=== PATIENT | male | born 1950 | race Caucasian/White ===

== ENCOUNTER 2020-10-13 20:22 | Inpatient (IN) | payer MEDICARE ==
[~2020-10-13] VITALS: Ht 172.7 cm; Wt 80.7 kg
[2020-10-13 20:54] LABS: BASOPHILS 0.3 % (0-2); HEMATOCRIT 31.5 % (42.0-54.0); IMMATURE GRANULOCYTES 0.5 % (0-5); LYMPHOCYTE ABS# 1.14 10x3/uL (1.32-3.57); LYMPHOCYTES 17.2 % (15-50); MCH 34.2 pg (26.0-34.0); MCHC 34.9 g/dL (31.0-37.0); MCV 97.8 fL (80.0-100.0); MEAN PLATELET VOLUME 10.5 fL (7.4-10.4); MONOCYTES 12.9 % (2-11); NEUTROPHIL ABS# 4.44 10x3/uL (1.78-5.38); NEUTROPHILS 67.1 % (40-80); PLATELET COUNT 107 10x3/uL (130-400); RBC 3.22 10x6/uL (4.20-6.10); RDW 14.8 % (11.5-14.5); WBC 6.6 10x3/uL (4.8-10.8)
[2020-10-13 21:13] LABS: ANION GAP 8.3 mmol/L (8-16); CALCIUM 8.5 mg/dL (8.5-10.1); CARBON DIOXIDE 28.1 mmol/L (21.0-32.0); CREATININE - SERUM 1.2 mg/dL (0.6-1.3); POTASSIUM - SERUM 3.4 mmol/L (3.5-5.1)
[2020-10-13 21:26] LABS: ALBUMIN 2.4 g/dL (3.4-5.0); BILIRUBIN - TOTAL 2.77 mg/dL (0.2-1.3); PROTEIN - SERUM 7.7 g/dL (6.4-8.2); TROPONIN-I 0.045 ng/mL (0.000-0.060)
[2020-10-13 23:55] LABS: APTT 35.7 SECONDS (22.8-39.4); INR 1.68 (0.85-1.17); PROTIME 18.3 SECONDS (11.6-15.0)
[2020-10-14 01:34] LABS: NITRITE NEGATIVE (NEGATIVE)
[2020-10-14 01:35] LABS: BILIRUBIN NEGATIVE (NEGATIVE); KETONE NEGATIVE (NEGATIVE); UROBILINOGEN 8 mg/dL (< 2)
[2020-10-14 01:36] LABS: BACTERIA FEW HPF (NONE SEEN); SQUAMOUS EPITHELIAL 0-5 HPF (0-4); WHITE CELLS - URINE 0-5 HPF (0-1)
[2020-10-14] MEDS ORDERED: TOPROL XL50 MG PO (03:37)
[2020-10-14 03:49] VITALS: BP 177/85; BMI 27.1
[2020-10-14 07:49] LABS: ALBUMIN 2.2 g/dL (3.4-5.0); ANION GAP 10.4 mmol/L (8-16); BILIRUBIN - TOTAL 2.64 mg/dL (0.2-1.3); CARBON DIOXIDE 24.9 mmol/L (21.0-32.0); CREATININE - SERUM 1.1 mg/dL (0.6-1.3); MAGNESIUM - SERUM 1.4 mg/dL (1.8-2.4); POTASSIUM - SERUM 3.3 mmol/L (3.5-5.1); PROTEIN - SERUM 6.9 g/dL (6.4-8.2)
[2020-10-14 08:03] LABS: BASOPHILS 0.5 % (0-2); EOSINOPHILS 3.7 % (0-7); HEMATOCRIT 30.2 % (42.0-54.0); HEMOGLOBIN 10.2 g/dL (13.5-17.5); IMMATURE GRANULOCYTES 0.3 % (0-5); LYMPHOCYTE ABS# 1.29 10x3/uL (1.32-3.57); LYMPHOCYTES 21.9 % (15-50); MCH 33.6 pg (26.0-34.0); MCHC 33.8 g/dL (31.0-37.0); MCV 99.3 fL (80.0-100.0); MONOCYTES 12.6 % (2-11); NEUTROPHIL ABS# 3.59 10x3/uL (1.78-5.38); PLATELET COUNT 112 10x3/uL (130-400); RBC 3.04 10x6/uL (4.20-6.10); RDW 15.1 % (11.5-14.5); WBC 5.9 10x3/uL (4.8-10.8)
[2020-10-14 09:04] LABS: % SATURATION 39 % (15-55); IRON 80 ug/dl (35-150); TOTAL IRON BIND CAPACITY 203 ug/dl (260-445); UNSAT IRON BIND CAPACITY 123 ug/dl (150-375)
[2020-10-14 09:31] VITALS: BP 155/83
[2020-10-14 12:13] LABS: PROTEIN - BODY FLUID 1.6 G/DL
[2020-10-14 13:19] VITALS: BP 180/77
[2020-10-14 13:59] LABS: MACROPHAGES BF 82 %; MESOTHELIALS BF 3 %; NEUT - BF 3 %
[2020-10-14 14:28] VITALS: Ht 172.7 cm; Wt 80.7 kg
[2020-10-14 17:25] VITALS: BP 141/68
--- NOTE | 2020-10-15 04:17 | NUR ---
ASSESSED AT THE BEGINNING OF THE SHIFT. PT IS ALERT AND ABLE TO VERBALIZE NEEDS. HIS IV SITE WAS PULLED OUT FROM HIS HAND AND WE ATTEMPTED TO REPLACE IT WITH SEVERAL NURSES AND MULTIPLE STICKS TO NO AVAIL. HE FINALLY TOLD US HE DID NOT WANT TO BE STUCK AGAIN. HE HAS A SMALL SITE ON HIS RIGHT LOWER ABD FROM THE PARACENTIS DONE YESTERDAY WITH NO DRAINAGE NOTED. 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 WE ARE RUNNING TELEMETRY AND IT IS SR. HE HAS A URINAL IN THE ROOM BUT HE IS VERY MESSY WITH THE URINAL AND HIS ROOM HAS AN OODER FO URINAL EVEN AFTER CLEANING IT. HE IS AWARE WE NEED A STOOL SPECIMEN.
[2020-10-15 05:54] LABS: BASOPHILS 0.6 % (0-2); EOSINOPHILS 4.1 % (0-7); HEMATOCRIT 28.2 % (42.0-54.0); HEMOGLOBIN 9.7 g/dL (13.5-17.5); IMMATURE GRANULOCYTES 0.4 % (0-5); LYMPHOCYTE ABS# 1.15 10x3/uL (1.32-3.57); LYMPHOCYTES 22.4 % (15-50); MCH 33.7 pg (26.0-34.0); MCHC 34.4 g/dL (31.0-37.0); MCV 97.9 fL (80.0-100.0); MEAN PLATELET VOLUME 11.3 fL (7.4-10.4); MONOCYTES 11.7 % (2-11); NEUTROPHIL ABS# 3.12 10x3/uL (1.78-5.38); NEUTROPHILS 60.8 % (40-80); PLATELET COUNT 105 10x3/uL (130-400); RBC 2.88 10x6/uL (4.20-6.10); RDW 14.8 % (11.5-14.5); WBC 5.1 10x3/uL (4.8-10.8)
[2020-10-15 06:16] LABS: ALBUMIN 2.1 g/dL (3.4-5.0); ALKALINE PHOSPHATASE 46 U/L (30-120); ALT (SGPT) 18 U/L (10-68); BILIRUBIN - TOTAL 2.31 mg/dL (0.2-1.3); CALC OSMOLALITY 264 mosm/kg (275-300); CALCIUM 7.6 mg/dL (8.5-10.1); CARBON DIOXIDE 25.2 mmol/L (21.0-32.0); CHLORIDE - SERUM 101 mmol/L (98-107); GLUCOSE 82 mg/dL (74-106); MAGNESIUM - SERUM 1.7 mg/dL (1.8-2.4); POTASSIUM - SERUM 3.6 mmol/L (3.5-5.1); PROTEIN - SERUM 6.4 g/dL (6.4-8.2); SODIUM 133 mmol/L (136-145); UREA NITROGEN 12 mg/dL (7-18); eGFR NON AFRICAN AMERICAN 78 mL/min (90-120)
[2020-10-15 06:20] LABS: LIPASE 776 U/L (73-393)
[2020-10-15 06:24] VITALS: BP 130/66
[2020-10-15 08:13] LABS: HEPATITIS C ANTIBODY >11.0 (0.0-0.9)
[2020-10-15 08:22] VITALS: BP 170/75
--- NOTE | 2020-10-15 09:09 | NUR ---
RESTING IN BED, NO DISTRESS NOTED, IV INFUSING, DIET ORDERED FOR THIS AM, CONT TO MONITOR
[2020-10-15] MEDS ORDERED: ALDACTONE100 MG PO (11:37)
[2020-10-15] MEDS ORDERED: FUROSEMIDE20 MG PO (11:38)
[2020-10-15] MEDS ORDERED: K-TAB10 MEQ PO (11:38)
[2020-10-15 12:20] VITALS: BP 136/51
--- NOTE | 2020-10-15 12:30 | NUR ---
PT LEFT UNIT LOOKING FOR HIS DAUGHTER, LOCATED AND RETURNED, PT HAD REMOVED IV, BLEEDING CONTROLLED
--- NOTE | 2020-10-15 13:40 | NUR ---
REVIEWED DC WITH PT, VOICED NO CONCERNS, AWAITING RIDE
--- NOTE | 2020-10-15 14:48 | NUR ---
DAUGHTER WHO IS PTS RIDE HOME IS NOW A PT OF THE HOSPITAL, CM AWARE
--- NOTE | 2020-10-15 15:16 | NUR ---
TAKEN OUT PER W/C TO MEET TAXI
--- NOTE | 2020-10-17 14:56 | MORECARE ---
CASE MANAGEMENT DISCHARGE SUMMARY PATIENT: AIDA AZAR UNIT: [id number] ADM DATE: 10/14/20 AGE: 70 : 50 SEX: M ROOM/BED: D.2204 AUTHOR: LUCILLE,DOC PHYSICIAN: REFERRING PHYSICIAN: WICHO BERRY MD DATE OF SERVICE: 10/17/20 Case Management Discharge Planning Summary COMMENTS ENTERED DATE: 10/15/20 14:38 CT COMMENT TYPE: Discharge Planning REVIEWER: Shaun Quiroz CM met with patient to complete DC plan and to evaluate needs. Patient lives independently with his daughter, Dary Emerson, . Patient stated that his home is safe and has electricity and running water. Patient stated that the home has 1 step to enter and he is able to manage the step without difficulty. Patient stated that he has no problems paying for medications and he fills his medications at [facility]. Patient stated that his primary care physician is Dr. Bishop Pollard. At discharge, the patient plans to return home and feels this is a safe discharge. CM discussed availability of home health, rehab services, and medical equipment. Patient declined HHS, SNF, IPR, and DME. AGUILA refusal for Home Health signed and placed in chart. Patient stated he has a cane at home and is able to walk around his home with ease. Patient voiced no other needs at this time and is satisfied with DC plan. Transportation provider at discharge will be with his daughter, Dary. DC IMM delivered, explained, signed by the patient, and placed in chart. Signed form also left with the patient. CM will continue to follow and will assist as needed with dc plans/needs DCP REVIEW SUMMARY ANTICIPATED D/C DATE: 10/15/2020 EXPECTED LOS : 1 CASE STATUS: DCP Complete INITIAL REVIEW: 10/14/2020 INITIAL REVIEWER: Shaun Quiroz FINAL DISCHARGE DISPOSITION: 01 : Home or Self Care (Routine Discharge) FINAL REVIEWER: Shaun Quiroz FINAL REVIEW DATE: 10/17/2020 DCP Focus Questions & Answers DCP Evaluation QUESTION: ANSWER Patient and/or caregiver agree upon recommended discharge plan? : Yes Family / Caregiver's ability to cope with chronic illness: : a. Adequate (ability to meet patient's medical needs, ensures patient attends medical appts.) Patient's current cognitive status: : *Oriented to person, place, situation, time and present Patient's ability to cope with chronic illness : d. No chronic illness Patient gives permission to discuss discharge plans with: (name, relationship and number) : daughterDary, Does the patient have the ability to pay for or attain post discharge needs / services? : Yes Functional screen assessment: : Basic needs can adequately be met by self Family / Caregiver's ability to cope with chronic illness: : a. Adequate (ability to meet patient's medical needs, ensures patient attends medical appts.) Physical Status: : Independent with ADL's Equipment needed for post hospitalization: : None Is there a likelihood that the patient will require additional services to return to the preadmission environment? : No Living Arrangements: : Home with Extended Family Patient with capacity for self-care or can be cared for in same environment as prior to hospitalization? : Yes Baseline cognitive status: : *Oriented to person, place, situation, time and present Physical environment modification needed / anticipated for discharge: : No Medication Management: : Patient states can read and understand medication labels Medication Management: : Patient states can afford medications Pharmacy name(s): : [email or web address] Does Patient have transportation to get home and to follow-up medical appointments when discharged from the hospital? : Yes Would patient like to participate in any Care Coordination programs (if applicable): : Not applicable Does the patient have electricity at home? : Yes Does the patient have running water in their house? : Yes Equipment in use: : Cane - Single Leg Mental health screen: : No mental health history DCP Re-evaluation QUESTION: ANSWER Would patient like to participate in any Care Coordination programs (if applicable): : Not applicable PATIENT: AIDA AZAR ENCOUNTER: [id number] MEDICAL RECORD#: [id number] ADMISSION DATE: 10/14/2020 DISCHARGE DATE: 10/15/2020 ATTENDING MD: WICHO DE LA TORRE : AGE: 70 MARITAL STATUS: S DC PLAN ID: [id number] FACILITY: [facility] PRINTED ON: 10/17/20 14:56 CT All edits/amendments must be made on the electronic document DICTATION DATE: 10/17/201455 SEWING MACHINE TESTER: PHILOMENA 10/17/201455 RPT#: [id number] DC DATE:10/15/20 STATUS: DIS IN [facility] [address] [place] [address] END OF REPORT
== END 2020-10-15 15:17 | disposition home or self-care (01) | DRG 432 ==
LOC: D.ER 20:22 → D.MS 10-14 02:52
PROVIDERS: Family Medicine; Radiology Vascular & Interventional Radiology; ADMIT Emergency Medicine; ATTEND Emergency Medicine
PROC: 0W9G3ZZ Drainage of Peritoneal Cavity, Percutaneous Approach (ICD-10-PCS; principal; 2020-10-14 10:15)
DX: K74.60 Unspecified cirrhosis of liver (principal); K85.90 Acute pancreatitis without necrosis or infection, unspecified; E87.1 Hypo-osmolality and hyponatremia; R18.8 Other ascites; K76.6 Portal hypertension; I10 Essential (primary) hypertension; E87.6 Hypokalemia; D50.9 Iron deficiency anemia, unspecified; D69.6 Thrombocytopenia, unspecified; K40.90 Unilateral inguinal hernia, without obstruction or gangrene, not specified as recurrent; Z86.19 Personal history of other infectious and parasitic diseases; K57.90 Diverticulosis of intestine, part unspecified, without perforation or abscess without bleeding; E83.42 Hypomagnesemia

== ENCOUNTER 2020-10-29 15:40 | Inpatient (IN) | payer MEDICARE ==
[~2020-10-29] VITALS: Ht 172.7 cm; Wt 81.6 kg
[~2020-10-29 15:40] MED LIST: ALDACTONE100 MG PO; FUROSEMIDE20 MG PO; K-TAB10 MEQ PO; TOPROL XL50 MG PO
[2020-10-29 16:39] LABS: BASOPHILS 0.4 % (0-2); EOSINOPHILS 2.3 % (0-7); HEMATOCRIT 33.6 % (42.0-54.0); HEMOGLOBIN 11.6 g/dL (13.5-17.5); LYMPHOCYTES 23.2 % (15-50); MCH 34.6 pg (26.0-34.0); MCHC 34.4 g/dL (31.0-37.0); MCV 100.7 fL (80.0-100.0); MEAN PLATELET VOLUME 8.8 fL (7.4-10.4); NEUTROPHILS 65.1 % (40-80); RBC 3.33 10x6/uL (4.20-6.10); RDW 15.1 % (11.5-14.5); WBC 5.8 10x3/uL (4.8-10.8)
[2020-10-29 16:41] LABS: PLATELET COUNT 139 10x3/uL (130-400)
[2020-10-29 16:48] LABS: CALC OSMOLALITY 258 mosm/kg (275-300); CALCIUM 8.5 mg/dL (8.5-10.1); CARBON DIOXIDE 25.2 mmol/L (21.0-32.0); CHLORIDE - SERUM 96 mmol/L (98-107); CREATININE - SERUM 1.1 mg/dL (0.6-1.3); GLUCOSE 109 mg/dL (74-106); POTASSIUM - SERUM 3.7 mmol/L (3.5-5.1); SODIUM 129 mmol/L (136-145); UREA NITROGEN 9 mg/dL (7-18); eGFR NON AFRICAN AMERICAN 70 mL/min (90-120)
[2020-10-29 16:56] LABS: ALBUMIN 2.6 g/dL (3.4-5.0); ALKALINE PHOSPHATASE 66 U/L (30-120); ALT (SGPT) 24 U/L (10-68); AMYLASE - SERUM 81 U/L (25-115); BILIRUBIN - TOTAL 2.68 mg/dL (0.2-1.3); LIPASE 543 U/L (73-393); PROTEIN - SERUM 8.3 g/dL (6.4-8.2); TROPONIN-I < 0.017 ng/mL (0.000-0.060)
[2020-10-29 17:36] LABS: APTT 39.8 SECONDS (22.8-39.4); INR 1.53 (0.85-1.17)
[2020-10-29 17:44] VITALS: BP 167/84
--- NOTE | 2020-10-29 17:44 | NUR ---
REPORT TO ARACELI COLUNGA
[2020-10-29 18:36] VITALS: BP 172/95; BMI 27.4
[2020-10-29 20:00] VITALS: BP 171/97
--- NOTE | 2020-10-30 00:54 | NUR ---
IV TO LAC HARD TO FLUSH AND TENDER. MULTIPLE NURSES AND HOUSE SUP HAVE ATTEMPTED TO RESITE IV WITHOUT SUCCESS. WOODS BOSS PROVIDER NOTIFIED. CONSULT FOR IR TO PLACE PICC LINE ORDERED. WILL CONTINUE TO ATTEMPT ACCESS
--- NOTE | 2020-10-30 02:29 | NUR ---
I have reviewed this patient and I concur with the Shift Assessment completed by the Licensed Practical Nurse today this shift.
[2020-10-30 04:00] VITALS: BP 162/83
[2020-10-30 05:36] LABS: BASOPHILS 0.5 % (0-2); EOSINOPHILS 2.1 % (0-7); HEMATOCRIT 28.3 % (42.0-54.0); LYMPHOCYTES 11.1 % (15-50); MCHC 35.2 g/dL (31.0-37.0); MCV 99.3 fL (80.0-100.0); MEAN PLATELET VOLUME 8.5 fL (7.4-10.4); MONOCYTES 4.9 % (2-11); NEUTROPHILS 81.4 % (40-80); PLATELET COUNT 135 10x3/uL (130-400); RBC 2.85 10x6/uL (4.20-6.10); RDW 15.1 % (11.5-14.5); WBC 5.8 10x3/uL (4.8-10.8)
[2020-10-30 06:06] LABS: ALBUMIN 2.3 g/dL (3.4-5.0); ANION GAP 10.9 mmol/L (8-16); BILIRUBIN - TOTAL 2.09 mg/dL (0.2-1.3); CARBON DIOXIDE 24.2 mmol/L (21.0-32.0); CREATININE - SERUM 1.2 mg/dL (0.6-1.3); MAGNESIUM - SERUM 1.3 mg/dL (1.8-2.4); POTASSIUM - SERUM 4.1 mmol/L (3.5-5.1); PROTEIN - SERUM 7.4 g/dL (6.4-8.2)
[2020-10-30 09:00] VITALS: BP 167/96
[2020-10-30 11:53] VITALS: BP 154/72
[2020-10-30 16:51] VITALS: BP 142/65
[2020-10-30 20:00] VITALS: BP 144/70
--- NOTE | 2020-10-30 23:36 | NUR ---
I have reviewed this patient and I concur with the Shift Assessment completed by the Licensed Practical Nurse today this shift.
[2020-10-30 23:40] LABS: BILIRUBIN NEGATIVE (NEGATIVE); KETONE NEGATIVE (NEGATIVE); NITRITE NEGATIVE (NEGATIVE); UROBILINOGEN 8 mg/dL (< 2)
[2020-10-31 06:23] LABS: BASOPHILS 0.3 % (0-2); EOSINOPHILS 0.1 % (0-7); HEMATOCRIT 27.1 % (42.0-54.0); HEMOGLOBIN 9.5 g/dL (13.5-17.5); LYMPHOCYTES 9.6 % (15-50); MCH 35.3 pg (26.0-34.0); MCHC 35.1 g/dL (31.0-37.0); MCV 100.6 fL (80.0-100.0); MEAN PLATELET VOLUME 8.5 fL (7.4-10.4); MONOCYTES 10.1 % (2-11); NEUTROPHILS 79.9 % (40-80); PLATELET COUNT 131 10x3/uL (130-400); RBC 2.69 10x6/uL (4.20-6.10); RDW 14.8 % (11.5-14.5)
[2020-10-31 06:29] LABS: INR 1.67 (0.85-1.17); PROTIME 18.3 SECONDS (11.6-15.0)
[2020-10-31 06:43] LABS: ALBUMIN 2.7 g/dL (3.4-5.0); ANION GAP 13.5 mmol/L (8-16); BILIRUBIN - TOTAL 1.44 mg/dL (0.2-1.3); CALCIUM 8.4 mg/dL (8.5-10.1); CARBON DIOXIDE 25.4 mmol/L (21.0-32.0); CREATININE - SERUM 1.2 mg/dL (0.6-1.3); POTASSIUM - SERUM 3.9 mmol/L (3.5-5.1); PROTEIN - SERUM 7.3 g/dL (6.4-8.2)
[2020-10-31 06:48] LABS: MAGNESIUM - SERUM 1.7 mg/dL (1.8-2.4)
[2020-10-31 06:59] LABS: WBC 8.1 10x3/uL (4.8-10.8)
[2020-10-31 09:22] VITALS: BP 137/57
--- NOTE | 2020-10-31 10:42 | NUR ---
I have reviewed this patient and I concur with the Shift Assessment completed by the Licensed Practical Nurse today this shift.
--- NOTE | 2020-10-31 11:04 | NUR ---
PATIENT REQUESTING TO SEE DOCTOR SO HE CAN BE DC, ADVISED PATIENT THAT MEDICAL FRONT DESK SPECIALIST IS ON FLOOR AND MAKING ROUNDS, ADMNISTERED PRN PAIN MEDICATION PATIENT STATE THAT STOMACH IS CRAMPING. CONTINUE WITH PLAN OF CARE
[2020-10-31 11:35] VITALS: BP 134/64
[2020-10-31 13:50] VITALS: Ht 172.7 cm; Wt 81.6 kg
[2020-10-31 17:28] VITALS: BP 127/62
[2020-10-31 20:00] VITALS: BP 152/73
[2020-11-01] VITALS: BP 108/47
--- NOTE | 2020-11-01 02:49 | NUR ---
PATIENT HAS BED ALARM IN PLACE, HE WILL NOT USE THE CALL LIGHT, VERBALLY REDIRECTED BUT HE FORGETS.
[2020-11-01 04:00] VITALS: BP 180/63
[2020-11-01 06:01] LABS: BASOPHILS 0.6 % (0-2); EOSINOPHILS 0.9 % (0-7); HEMATOCRIT 28.8 % (42.0-54.0); MCH 35.1 pg (26.0-34.0); MCHC 34.9 g/dL (31.0-37.0); MCV 100.6 fL (80.0-100.0); MEAN PLATELET VOLUME 8.5 fL (7.4-10.4); MONOCYTES 4.3 % (2-11); NEUTROPHILS 85.2 % (40-80); PLATELET COUNT 139 10x3/uL (130-400); RBC 2.86 10x6/uL (4.20-6.10); RDW 14.8 % (11.5-14.5)
[2020-11-01 06:04] LABS: APTT 33.3 SECONDS (22.8-39.4); INR 1.66 (0.85-1.17); PROTIME 18.2 SECONDS (11.6-15.0)
[2020-11-01 06:25] LABS: ALBUMIN 2.6 g/dL (3.4-5.0); ANION GAP 10.8 mmol/L (8-16); BILIRUBIN - TOTAL 1.22 mg/dL (0.2-1.3); CALCIUM 8.3 mg/dL (8.5-10.1); CARBON DIOXIDE 23.1 mmol/L (21.0-32.0); CREATININE - SERUM 1.2 mg/dL (0.6-1.3); MAGNESIUM - SERUM 1.6 mg/dL (1.8-2.4); POTASSIUM - SERUM 3.9 mmol/L (3.5-5.1); PROTEIN - SERUM 7.3 g/dL (6.4-8.2)
[2020-11-01 08:38] VITALS: BP 169/75
--- NOTE | 2020-11-01 09:46 | NUR ---
PATIENT STATED THAT HE IS TIRED OF BEING PICKED AND PROBED AND READY TO GO HOME. EXPLAINED THAT PATIENT NEEDS TO SEE [facility] AND [facility] CONCERNS, PATIENT STATED HE IS READY TO LEAVE, NO OTHER NEEDS AT THIS TIME. COTCHRISTELLENUE WITH PLAN OF CARE
--- NOTE | 2020-11-01 11:30 | NUR ---
I have reviewed this patient and I concur with the Shift Assessment completed by the Licensed Practical Nurse today this shift.
[2020-11-01 11:45] VITALS: BP 143/62
--- NOTE | 2020-11-01 13:56 | MORECARE ---
CASE MANAGEMENT DISCHARGE SUMMARY PATIENT: AIDA AZAR UNIT: [id number] ADM DATE: 10/30/20 AGE: 70 : 50 SEX: M ROOM/BED: D.2212 AUTHOR: DEDRA ADKINS PHYSICIAN: REFERRING PHYSICIAN: MILVIA LIAO MD DATE OF SERVICE: 11/01/20 Case Management Discharge Planning Summary DCP REVIEW SUMMARY ANTICIPATED D/C DATE: EXPECTED LOS : CASE STATUS: DCP Initiated INITIAL REVIEW: 10/29/2020 INITIAL REVIEWER: Anay Coe FINAL DISCHARGE DISPOSITION: : FINAL REVIEWER: FINAL REVIEW DATE: DCP Focus Questions & Answers DCP Screen QUESTION: ANSWER High Risk Factors: : Hosp related to CHF, COPD, DM, End Stage Ds, CVA, CA DCP Evaluation QUESTION: ANSWER Patient and/or caregiver agree upon recommended discharge plan? : Yes Family / Caregiver's ability to cope with chronic illness: : a. Adequate (ability to meet patient's medical needs, ensures patient attends medical appts.) Patient's current cognitive status: : *Oriented to person, place, situation, time and present Patient gives permission to discuss discharge plans with: (name, relationship and number) : JENAE MCGOWAN Patient's ability to cope with chronic illness : a. Adequate (0-3 ED visits in 6 mos., adequate financial resources, attends scheduled appts.) Alternate discharge plan (if recommended plan not agreed upon by patient and/or caregiver): : WE WILL WAIT TO SEE WHAT PT/OT SAY Does the patient have the ability to pay for or attain post discharge needs / services? : Yes Functional screen assessment: : Basic needs can adequately be met by self Family / Caregiver's ability to cope with chronic illness: : a. Adequate (ability to meet patient's medical needs, ensures patient attends medical appts.) Physical Status: : Independent with ADL's Is there a likelihood that the patient will require additional services to return to the preadmission environment? : Yes Living Arrangements: : Home with Extended Family Results of this evaluation have been discussed with: : Children Patient with capacity for self-care or can be cared for in same environment as prior to hospitalization? : Yes Living arrangements comments: : JUST MOVED IN WITH HIS DAUGHTER Baseline cognitive status: : *Oriented to person, place, situation, time and present Medication Management: : Patient states can read and understand medication labels Pharmacy name(s): : [facility] Does Patient have transportation to get home and to follow-up medical appointments when discharged from the hospital? : Yes Would patient like to participate in any Care Coordination programs (if applicable): : Not applicable Does the patient have electricity at home? : Yes Does the patient have running water in their house? : Yes Equipment in use: : Shower Chair Equipment in use: : Cane - Single Leg Mental health screen: : No mental health history Psychosocial status: : Independent adult (18-64) Abuse/Neglect: : Alcohol use - History of Resources / Services in place: : None DCP Re-evaluation QUESTION: ANSWER Would patient like to participate in any Care Coordination programs (if applicable): : Not applicable PATIENT: AIDA AZAR ENCOUNTER: [id number] MEDICAL RECORD#: [id number] ADMISSION DATE: 10/30/2020 DISCHARGE DATE: ATTENDING MD: MILVIA ROB : AGE: 70 MARITAL STATUS: S DC PLAN ID: [id number] FACILITY: [facility] PRINTED ON: 11/01/20 13:56 CT All edits/amendments must be made on the electronic document DICTATION DATE: 11/01/20 135 DIESEL ENGINE PIPE FITTER: PHILOMENA 11/01/20 1356 RPT#: [id number] DC DATE: STATUS: ADM IN [facility] [address] [place] [address] END OF REPORT
--- NOTE | 2020-11-01 14:09 | MORECARE ---
CASE MANAGEMENT DISCHARGE SUMMARY PATIENT: AIDA AZAR UNIT: [id number] ADM DATE: 10/30/20 AGE: 70 : 50 SEX: M ROOM/BED: D.2212 AUTHOR: LUCILLE,DOC PHYSICIAN: REFERRING PHYSICIAN: MILVIA LIAO MD DATE OF SERVICE: 11/01/20 Case Management Discharge Planning Summary COMMENTS ENTERED DATE: 11/01/20 13:56 CT COMMENT TYPE: Discharge Planning REVIEWER: Anay Coe CM met with patient & daughter to complete initial dc planning assessment. CM educated patient on the CM role and verbal consent given by patient to complete assessment. Patient lives at home with his daughter. He just moved to [place] about 6 weeks ago. Per his daughter he has a cane and a shower chair at home. He does not have a walker. He can meet his basic ADL's. Dary stated that he use to be a heavy drinker, but he only has a couple beers at her home. She said that he has an appointment on November 11 to see if he can have surgery on his hernias. CM discussed availability of home health, rehab services, and medical equipment. We will wait and see what PT/OT evaluations state to have a safe discharge plan. CM will continue to follow and will assist as needed with dc plans/needs Patient's new physical address is [address] [place] [phone] DCP REVIEW SUMMARY ANTICIPATED D/C DATE: EXPECTED LOS : CASE STATUS: DCP Initiated INITIAL REVIEW: 10/29/2020 INITIAL REVIEWER: Anay Coe FINAL DISCHARGE DISPOSITION: : FINAL REVIEWER: FINAL REVIEW DATE: DCP Focus Questions & Answers DCP Screen QUESTION: ANSWER High Risk Factors: : Hosp related to CHF, COPD, DM, End Stage Ds, CVA, CA DCP Evaluation QUESTION: ANSWER Patient and/or caregiver agree upon recommended discharge plan? : Yes Family / Caregiver's ability to cope with chronic illness: : a. Adequate (ability to meet patient's medical needs, ensures patient attends medical appts.) Patient's current cognitive status: : *Oriented to person, place, situation, time and present Patient gives permission to discuss discharge plans with: (name, relationship and number) : DARY MCGOWAN Patient's ability to cope with chronic illness : a. Adequate (0-3 ED visits in 6 mos., adequate financial resources, attends scheduled appts.) Alternate discharge plan (if recommended plan not agreed upon by patient and/or caregiver): : WE WILL WAIT TO SEE WHAT PT/OT SAY Does the patient have the ability to pay for or attain post discharge needs / services? : Yes Functional screen assessment: : Basic needs can adequately be met by self Family / Caregiver's ability to cope with chronic illness: : a. Adequate (ability to meet patient's medical needs, ensures patient attends medical appts.) Physical Status: : Independent with ADL's Is there a likelihood that the patient will require additional services to return to the preadmission environment? : Yes Living Arrangements: : Home with Extended Family Results of this evaluation have been discussed with: : Children Patient with capacity for self-care or can be cared for in same environment as prior to hospitalization? : Yes Living arrangements comments: : JUST MOVED IN WITH HIS DAUGHTER Baseline cognitive status: : *Oriented to person, place, situation, time and present Medication Management: : Patient states can read and understand medication labels Pharmacy name(s): : [facility] Does Patient have transportation to get home and to follow-up medical appointments when discharged from the hospital? : Yes Would patient like to participate in any Care Coordination programs (if applicable): : Not applicable Does the patient have electricity at home? : Yes Does the patient have running water in their house? : Yes Equipment in use: : Shower Chair Equipment in use: : Cane - Single Leg Mental health screen: : No mental health history Psychosocial status: : Independent adult (18-64) Abuse/Neglect: : Alcohol use - History of Resources / Services in place: : None DCP Re-evaluation QUESTION: ANSWER Would patient like to participate in any Care Coordination programs (if applicable): : Not applicable PATIENT: AIDA AZAR ENCOUNTER: [id number] MEDICAL RECORD#: [id number] ADMISSION DATE: 10/30/2020 DISCHARGE DATE: ATTENDING MD: MILVIA ROB : AGE: 70 MARITAL STATUS: S DC PLAN ID: [id number] FACILITY: [facility] PRINTED ON: 11/01/20 14:09 CT All edits/amendments must be made on the electronic document DICTATION DATE: 11/01/201407 CAREER AND TRANSITION TEACHER: PHILOMENA 11/01/201407 RPT#: [id number] DC DATE: STATUS: ADM IN [facility] [address] [place] [address] END OF REPORT
[2020-11-01 17:03] VITALS: BP 145/78
[2020-11-01 20:00] VITALS: BP 144/58
[2020-11-02] VITALS: BP 181/68
[2020-11-02 04:00] VITALS: BP 178/75
--- NOTE | 2020-11-02 04:44 | NUR ---
PATIENT HAD PAIN MANAGED WITH THE PRESCRIBED PAIN MEDICATIONS, HE WAS ANXIOUS AND INCONTINENT SEVERAL TIMES TONIGHT. HE HAD A BATH THIS SHIFT. RESTING IN BED AT THIS TIME.
[2020-11-02 08:22] LABS: BASOPHILS 0.6 % (0-2); EOSINOPHILS 1.2 % (0-7); HEMATOCRIT 31.3 % (42.0-54.0); HEMOGLOBIN 10.9 g/dL (13.5-17.5); LYMPHOCYTES 12.2 % (15-50); MCH 34.6 pg (26.0-34.0); MCHC 34.9 g/dL (31.0-37.0); MCV 99.1 fL (80.0-100.0); MEAN PLATELET VOLUME 8.2 fL (7.4-10.4); MONOCYTES 11.1 % (2-11); NEUTROPHILS 74.9 % (40-80); PLATELET COUNT 147 10x3/uL (130-400); RBC 3.16 10x6/uL (4.20-6.10); RDW 14.7 % (11.5-14.5)
[2020-11-02 08:23] VITALS: BP 160/57
[2020-11-02 08:32] LABS: ALBUMIN 2.8 g/dL (3.4-5.0); ALKALINE PHOSPHATASE 54 U/L (30-120); ALT (SGPT) 30 U/L (10-68); BILIRUBIN - TOTAL 1.43 mg/dL (0.2-1.3); CALC OSMOLALITY 260 mosm/kg (275-300); CALCIUM 8.7 mg/dL (8.5-10.1); CHLORIDE - SERUM 100 mmol/L (98-107); LIPASE 682 U/L (73-393); MAGNESIUM - SERUM 1.4 mg/dL (1.8-2.4); POTASSIUM - SERUM 3.7 mmol/L (3.5-5.1); PROTEIN - SERUM 7.7 g/dL (6.4-8.2); SODIUM 130 mmol/L (136-145); UREA NITROGEN 13 mg/dL (7-18); eGFR NON AFRICAN AMERICAN 78 mL/min (90-120)
[2020-11-02 08:33] LABS: WBC 9.1 10x3/uL (4.8-10.8)
[2020-11-02 08:35] LABS: GLUCOSE 95 mg/dL (74-106)
[2020-11-02 08:41] LABS: APTT 34.5 SECONDS (22.8-39.4); INR 1.7 (0.85-1.17); PROTIME 18.5 SECONDS (11.6-15.0)
--- NOTE | 2020-11-02 09:43 | MORECARE ---
CASE MANAGEMENT DISCHARGE SUMMARY PATIENT: AIDA AZAR UNIT: [id number] ADM DATE: 10/30/20 AGE: 70 : 50 SEX: M ROOM/BED: D.2212 AUTHOR: LUCILLE,DOC PHYSICIAN: REFERRING PHYSICIAN: MILVIA LIAO MD DATE OF SERVICE: 11/02/20 Case Management Discharge Planning Summary COMMENTS ENTERED DATE: 11/01/20 13:56 CT COMMENT TYPE: Discharge Planning REVIEWER: Anay Coe CM met with patient & daughter to complete initial dc planning assessment. CM educated patient on the CM role and verbal consent given by patient to complete assessment. Patient lives at home with his daughter. He just moved to [place] about 6 weeks ago. Per his daughter he has a cane and a shower chair at home. He does not have a walker. He can meet his basic ADL's. Dary stated that he use to be a heavy drinker, but he only has a couple beers at her home. She said that he has an appointment on November 11 to see if he can have surgery on his hernias. CM discussed availability of home health, rehab services, and medical equipment. We will wait and see what PT/OT evaluations state to have a safe discharge plan. CM will continue to follow and will assist as needed with dc plans/needs Patient's new physical address is [address] [place] [phone] DCP REVIEW SUMMARY ANTICIPATED D/C DATE: EXPECTED LOS : CASE STATUS: DCP Initiated INITIAL REVIEW: 10/29/2020 INITIAL REVIEWER: Anay Coe FINAL DISCHARGE DISPOSITION: : FINAL REVIEWER: FINAL REVIEW DATE: DCP Focus Questions & Answers DCP Screen QUESTION: ANSWER High Risk Factors: : Hosp related to CHF, COPD, DM, End Stage Ds, CVA, CA DCP Evaluation QUESTION: ANSWER Patient's ability to cope with chronic illness : a. Adequate (0-3 ED visits in 6 mos., adequate financial resources, attends scheduled appts.) Patient gives permission to discuss discharge plans with: (name, relationship and number) : DARY MCGOWAN Patient's current cognitive status: : *Oriented to person, place, situation, time and present Family / Caregiver's ability to cope with chronic illness: : a. Adequate (ability to meet patient's medical needs, ensures patient attends medical appts.) Patient and/or caregiver agree upon recommended discharge plan? : Yes Physical Status: : Independent with ADL's Family / Caregiver's ability to cope with chronic illness: : a. Adequate (ability to meet patient's medical needs, ensures patient attends medical appts.) Functional screen assessment: : Basic needs can adequately be met by self Does the patient have the ability to pay for or attain post discharge needs / services? : Yes Alternate discharge plan (if recommended plan not agreed upon by patient and/or caregiver): : WE WILL WAIT TO SEE WHAT PT/OT SAY Living Arrangements: : Home with Extended Family Is there a likelihood that the patient will require additional services to return to the preadmission environment? : Yes Baseline cognitive status: : *Oriented to person, place, situation, time and present Living arrangements comments: : JUST MOVED IN WITH HIS DAUGHTER Patient with capacity for self-care or can be cared for in same environment as prior to hospitalization? : Yes Results of this evaluation have been discussed with: : Children Medication Management: : Patient states can read and understand medication labels Pharmacy name(s): : [facility] Does Patient have transportation to get home and to follow-up medical appointments when discharged from the hospital? : Yes Would patient like to participate in any Care Coordination programs (if applicable): : Not applicable Does the patient have electricity at home? : Yes Does the patient have running water in their house? : Yes Equipment in use: : Cane - Single Leg Equipment in use: : Shower Chair Mental health screen: : No mental health history Psychosocial status: : Independent adult (18-64) Abuse/Neglect: : Alcohol use - History of Resources / Services in place: : None DCP Re-evaluation QUESTION: ANSWER Would patient like to participate in any Care Coordination programs (if applicable): : Not applicable PATIENT: AIDA AZAR ENCOUNTER: [id number] MEDICAL RECORD#: [id number] ADMISSION DATE: 10/30/2020 DISCHARGE DATE: ATTENDING MD: MILVIA ROB : AGE: 70 MARITAL STATUS: S DC PLAN ID: [id number] FACILITY: [facility] PRINTED ON: 11/02/20 9:43 CT All edits/amendments must be made on the electronic document DICTATION DATE: 11/02/20942 ASSESSMENT SPECIALIST: PHILOMENA 11/02/20942 RPT#: [id number] DC DATE: STATUS: ADM IN [facility] [address] [facility] [place] [address] END OF REPORT
[2020-11-02 12:09] VITALS: BP 175/75
--- NOTE | 2020-11-02 13:58 | NUR ---
IN BED, FREE FROM SIGNS OF DISTRESS. BED LOW POSITION, CALL LIGHT IN REACH. I CONCUR WITH CABLE TOWER OPERATOR SHIFT ASSESSMENT.
--- NOTE | 2020-11-02 15:31 | NUR ---
IN BED WITH EYES CLOSED, EASILY AROUSES TO VOICE. ADMINSITERED MEDICATION, NO DIFFICULTIES. RESTING UPRIGHT IN BED. DENIES ANY NEEDS AT THIS TIME. BED IN LOWEST POSITION, BED RAILS X2, CALL LIGHT WITHIN REACH. WILL CONITNUE POC.
[2020-11-02 17:02] VITALS: BP 152/71
[2020-11-02 20:00] VITALS: BP 149/68
--- NOTE | 2020-11-02 21:34 | NUR ---
OT NOTE: PT WAS LETHARGIC. PT COMPLETED SUPINE TO SIT WITH MIN A. PT COMPLETED BED TO CHAIR TSF WITH MIN A. PT COMPLETED CHAIR TO BED TSF WITH MIN A. PT REQUIRED EXTENSIVE COG CUES FOR INCREASED SAFETY. PT REQUIRED MOD A FOR DOFF/MONTSE BRIEF. ALARM ON...CL IN REACH. [phone] [facility]
[2020-11-03 03:33] VITALS: BP 158/70
--- NOTE | 2020-11-03 03:33 | NUR ---
BED ALARM WENT OF AND HEARD A THUD AND THE PATIENT WAS ON THE FLOOR BETWEEN THE BED AND THE BATHROOM DOOR. WE HELPED HIM UP AND BACK TO BED. HE HAD BRUISE ON LEFT UPPER BACK AND A SMALLER BRUISE ON HIS LEFT SIDE. DARYL ACEVEDO NP AND HOME AIDE NOTIFIED. AEROSPACE ASSEMBLER ORDERED CT OF HEAD , C-SPINE, AND LUMBAR SPINE, AND X-RAY OF LEFT HUMERUS. PATIENT IS AWAKE IN HIS ROOM ANT THIS TIME. LOU BED ALARM ON.
--- NOTE | 2020-11-03 06:24 | NUR ---
ATTEMPTED TO NOTIGY THE PATIENTS DAUGHTER JENAE DUFFY BUT THERE WAS NO ANSWER.
--- NOTE | 2020-11-03 07:10 | NUR ---
PATIENTS DAUGHTER CALLED BACK AND I NOTIFIED HER THAT HER FATHER HAD A FALL.
[2020-11-03 07:14] LABS: BASOPHILS 0.9 % (0-2); EOSINOPHILS 2.4 % (0-7); HEMATOCRIT 32.2 % (42.0-54.0); HEMOGLOBIN 11.2 g/dL (13.5-17.5); MCH 34.8 pg (26.0-34.0); MCHC 34.9 g/dL (31.0-37.0); MCV 99.8 fL (80.0-100.0); MONOCYTES 10.6 % (2-11); NEUTROPHILS 69.1 % (40-80); PLATELET COUNT 129 10x3/uL (130-400); RBC 3.22 10x6/uL (4.20-6.10); RDW 14.6 % (11.5-14.5); WBC 8.1 10x3/uL (4.8-10.8)
[2020-11-03 07:36] LABS: APTT 33.6 SECONDS (22.8-39.4); INR 1.6 (0.85-1.17); PROTIME 17.6 SECONDS (11.6-15.0)
[2020-11-03 07:42] LABS: ALBUMIN 2.8 g/dL (3.4-5.0); ANION GAP 12.5 mmol/L (8-16); BILIRUBIN - TOTAL 1.76 mg/dL (0.2-1.3); CALCIUM 8.7 mg/dL (8.5-10.1); CREATININE - SERUM 1.1 mg/dL (0.6-1.3); MAGNESIUM - SERUM 1.3 mg/dL (1.8-2.4); POTASSIUM - SERUM 3.5 mmol/L (3.5-5.1); PROTEIN - SERUM 7.4 g/dL (6.4-8.2)
[2020-11-03 08:51] VITALS: BP 119/69
--- NOTE | 2020-11-03 09:00 | NUR ---
ASSESSMENT PER FLOW SHEET. PATIENT IS WITHOUT DISTRESS.HE KEEPS GETTING OUT OF BED.FALL PREVENTION WITH LOU. I HAVE LOOKED FOR HIS PHONE,BUT CAN NOT FIND IT IN ROOM. CHARGERS ARE IN ROOM. CALL FOR SOMEONE TO COME AND GET WALLET AND LOCK IN SAFE.MONITOR FOR NEEDS. DOOR OPEN
--- NOTE | 2020-11-03 09:30 | NUR ---
REFUSES IV RESITE. PATIENT KEEPS PULLING OFF TELEMETRY. I HAVE PUT IN ON SEVERAL TIMES TODAY.MAG PER PROTOCOL.
[2020-11-03 11:00] VITALS: BP 116/68
--- NOTE | 2020-11-03 11:45 | NUR ---
REHAB PRESCREEN RECEIVED. WE WILL WORK ON HIS PRESCREEN SHORTLY AND IF APPROPRIATE AND PATIENT WANTS TO COME TO US, WE WILL START THE AUTH PROCESS WITH [facility] (WHO DOES [facility] FOR [facility]). THANK YOU FOR THIS REFERRAL. INDERJIT MOTT RN CLINICAL LIAISON, INPATIENT REHAB.
--- NOTE | 2020-11-03 13:34 | NUR ---
OT NOTE: PT LETHARGIC. PT IS INCONSISTENT WITH FUNCTIONAL PERFORMANCE. PT REQUIRED MOD-MAX A FOR SUPINE TO SIT. PT REQUIRED MOD-MAX A FOR SIT TO STAND. PT REQUIRED MAX A FOR SIDE STEPS. PT REQUIRED MAX A FOR POSITIONING IN BED. PT REQUIRED MOD A FOR FACE HYGIENE. ALARM ON..CL IN REACH. NOTIFIED NURSING OF LETHARGIC STATE. [id number] THANK YOU,MAGGI LYNCH
--- NOTE | 2020-11-03 14:04 | NUR ---
Nutrition follow-up: Pt s/p paracentesis (POD 3) with 6.3 liters fluid removed Diet: regular low sodium PO intake ~50% of some meals Pt lethargic today; s/p fall Wt: 180# Labs reviewed Will continue to provide food choices and honor food preferences. RDN will order Ensure with meals. Follow-up: 11/09/20
--- NOTE | 2020-11-03 14:15 | NUR ---
AFTER REVIEWING THERAPY NOTES. PHYSICAL THERAPY SIGNED HIM OFF TO [employer] [facility] [employer] [facility] HE IS AT HIS BASELING AND WAS JUST CGA. OCCUPATIONAL THERAPY EVALUATION HAS HIM SUPERVISED OR MINIMAL ASSISTANCE. WITHOUT THE NEED FOR 3 HOURS [facility] WILL NOT APPROVE HIM FOR INPATIENT REHAB. I HAVE TALKED WITH ARACELI ABEL CM, AND SHE IS PUTTING ANOTHER ORDER IN FOR PHYSICAL THERAPY TO COME RE-EVALUATE HIM HE HAS FALLEN AND SHE SAID HE NEED THE REHAB. I WILL WAIT ON THE NEW EVALUATION RESULTS. INDERJIT MOTT RN CLINICAL LIAISON, INPATIENT REHAB.
--- NOTE | 2020-11-03 14:17 | NUR ---
CALL TO FAMILY, JENAE. I ASK HER TO COME SIT WITH PATIENT. SHE STATES SHE SAYS IF SHE COMES SITS WITH PATIENT IT WOULD BE A FEW HOURS BEFORE SHE COULD COME. SHE ALSO SAYS SHE THINKS HE WILL WANT TO LEAVE IF SHE COMES.
--- NOTE | 2020-11-03 15:23 | NUR ---
getting out of bed again,very anxious. meds as ordered per mar.
[2020-11-03 20:39] VITALS: BP 144/72
--- NOTE | 2020-11-04 05:45 | NUR ---
LOU ALARM SOUNDING, PT ON FLOOR. APPEARS PT RAISED BED ALL THE WAY UP WITH BUTTONS. DENIES PAIN, BUT LEFT KNEE APPEARS SCRAPED. FALL PRECAUTIONS WERE IN USE. DARYL MARTINI APN NOTIFIED. PTs DAUGHTER, JENAE DUFFY, WAS CALLED TWICE, WITH NO ANSWER. DAMAGED FREIGHT INSPECTOR NOTIFIED. TRANSFERRING PT INTO NEW WHITE BED WITH BUILT IN ALARM AND LOU ALARM. LOCKING BED ADJUSTMENT BUTTONS.
[2020-11-04 08:00] VITALS: BP 178/75
[2020-11-04 08:34] LABS: ALBUMIN 2.7 g/dL (3.4-5.0); ANION GAP 11.4 mmol/L (8-16); BILIRUBIN - TOTAL 2.33 mg/dL (0.2-1.3); CALCIUM 8.5 mg/dL (8.5-10.1); CREATININE - SERUM 1.2 mg/dL (0.6-1.3); POTASSIUM - SERUM 3.4 mmol/L (3.5-5.1); PROTEIN - SERUM 7.3 g/dL (6.4-8.2)
[2020-11-04 08:37] LABS: BASOPHILS 0.4 % (0-2); HEMATOCRIT 32.3 % (42.0-54.0); HEMOGLOBIN 11.2 g/dL (13.5-17.5); LYMPHOCYTES 18.8 % (15-50); MCH 34.5 pg (26.0-34.0); MCHC 34.5 g/dL (31.0-37.0); MEAN PLATELET VOLUME 8.2 fL (7.4-10.4); MONOCYTES 9.1 % (2-11); NEUTROPHILS 68.7 % (40-80); RBC 3.23 10x6/uL (4.20-6.10); RDW 14.8 % (11.5-14.5); WBC 6.4 10x3/uL (4.8-10.8)
[2020-11-04 08:47] LABS: PLATELET COUNT 97 10x3/uL (130-400)
--- NOTE | 2020-11-04 09:00 | NUR ---
ASSESSMENT PER FLOW SHEET. PATIENT IS WITHOUT DISTRESS.FALL PREVENTION WITH LOU MAT. MONITOR FOR NEEDS.DOOR OPEN
--- NOTE | 2020-11-04 09:00 | NUR ---
ASSESSMENT PER FLOW SHEET. PATIENT HAD BEEN GETTING OUT OF BED THIS AM. I REISTRUCTED PATIENT NOT TO GET OUT OF BED VERY FIRMLY. PATIENT INSTRUCTED THAT HE COULD BE INJURED. PATIENT COOPERATIVE AND AGREES TO STAY IN BED. BED ALARM AND LOU ON AND WORKING.DOOR OPEN
[2020-11-04 10:02] LABS: PROTIME 18.2 SECONDS (11.6-15.0)
[2020-11-04 10:03] LABS: APTT 35.1 SECONDS (22.8-39.4); INR 1.66 (0.85-1.17)
[2020-11-04 10:17] LABS: PLATELET ESTIMATE DECREASED
[2020-11-04 11:37] VITALS: BP 151/68
--- NOTE | 2020-11-04 16:27 | NUR ---
OT NOTE: PT REQUIRED MOD A FOR SUPINE TO SIT. PT COMPLETED EOB SITTING WITH CGA. PT REQUIRED COG CUES FOR INCREASED SEQUENCING OF SIMPLE TASKS. PT COMPLETED ADL MOB WITH MIN-MOD A . PT COMPLETED FACE HYGIENE WITH SETUP AT EOB. PT COMPLETED ORAL HYGIENE WITH TOOTHETTE REQUIRED MOD A. PT COMPLETED HAIR GROOMING WITH MIN A. CL IN REACH..ALARM ON. [phone] CORBY HAMMONDS COTA
[2020-11-04 19:09] LABS: HCVGENO - HEP C QUANT 641000 IU/mL (()); HCVGENO - LOG 10 5.807 (())
--- NOTE | 2020-11-05 02:13 | NUR ---
LOU ALARM SOUNDING. PT ATTEMPTING TO GET OOB. REPORTS HE NEEDS TO HAVE A BM. TRANSFERRED TO BSC. FULL LINEN CHANGE AND BED BATH PERFORMED. PT GRASPING AT ABDOMEN, ASKING "WHY DO I KEEP GOING? MY STOMACHE IS KILLING ME!" INFORMED PT ON SIDE EFFECTS OF HIS MEDICATION AND PURPOSE. REPORTS ABD CRAMPING 03/19.
--- NOTE | 2020-11-05 03:13 | NUR ---
I have reviewed this patient and I concur with the Shift Assessment completed by the Licensed Practical Nurse today this shift.
[2020-11-05 05:47] LABS: INR 1.54 (0.85-1.17); PROTIME 17.1 SECONDS (11.6-15.0)
[2020-11-05 06:07] LABS: ALBUMIN 2.9 g/dL (3.4-5.0); BILIRUBIN - TOTAL 2.18 mg/dL (0.2-1.3); CALCIUM 8.3 mg/dL (8.5-10.1); CREATININE - SERUM 1.2 mg/dL (0.6-1.3); PROTEIN - SERUM 7.8 g/dL (6.4-8.2)
[2020-11-05 07:01] LABS: EOSINOPHILS 4.5 % (0-7); HEMATOCRIT 33.5 % (42.0-54.0); HEMOGLOBIN 11.6 g/dL (13.5-17.5); LYMPHOCYTES 21.2 % (15-50); MCHC 34.7 g/dL (31.0-37.0); MONOCYTES 7.7 % (2-11); NEUTROPHILS 65.6 % (40-80); PLATELET COUNT 80 10x3/uL (130-400); RBC 3.32 10x6/uL (4.20-6.10); RDW 14.9 % (11.5-14.5); WBC 7.2 10x3/uL (4.8-10.8)
[2020-11-05 09:04] VITALS: BP 179/75
[2020-11-05 13:56] VITALS: BP 169/81
[2020-11-05 18:30] VITALS: BP 150/65
--- NOTE | 2020-11-05 19:00 | NUR ---
BEDSIDE REPORT RECEIVED AND CARE OF PT ASSUMED. PT SITTING UP IN BED WATCHING TV. NO IV SITED. BED ALARM IN USE. TELEMETRY IN PLACE AND READING SR AT THIS ASSESSMENT.
--- NOTE | 2020-11-05 21:12 | NUR ---
HS MEDICATIONS GIVEN. WILL CONTINUE TO MONITOR FOR NEEDS.
[2020-11-06] VITALS: BP 160/58
[2020-11-06 04:00] VITALS: BP 149/64
[2020-11-06 07:00] LABS: BASOPHILS 0.6 % (0-2); EOSINOPHILS 3.3 % (0-7); HEMATOCRIT 31.2 % (42.0-54.0); HEMOGLOBIN 10.9 g/dL (13.5-17.5); LYMPHOCYTES 19.2 % (15-50); MCH 35.1 pg (26.0-34.0); MCHC 35.1 g/dL (31.0-37.0); MEAN PLATELET VOLUME 8.3 fL (7.4-10.4); MONOCYTES 9.2 % (2-11); NEUTROPHILS 67.7 % (40-80); PLATELET COUNT 90 10x3/uL (130-400); RBC 3.11 10x6/uL (4.20-6.10); RDW 14.7 % (11.5-14.5); WBC 7.7 10x3/uL (4.8-10.8)
[2020-11-06 07:05] LABS: INR 1.65 (0.85-1.17); PROTIME 18.1 SECONDS (11.6-15.0)
[2020-11-06 07:12] LABS: ALBUMIN 2.7 g/dL (3.4-5.0); ANION GAP 11.9 mmol/L (8-16); BILIRUBIN - TOTAL 2.03 mg/dL (0.2-1.3); CALCIUM 8.3 mg/dL (8.5-10.1); CARBON DIOXIDE 22.6 mmol/L (21.0-32.0); CREATININE - SERUM 1.1 mg/dL (0.6-1.3); MAGNESIUM - SERUM 1.3 mg/dL (1.8-2.4); POTASSIUM - SERUM 3.5 mmol/L (3.5-5.1); PROTEIN - SERUM 7.4 g/dL (6.4-8.2)
[2020-11-06 07:49] LABS: PLATELET ESTIMATE DECREASED
--- NOTE | 2020-11-06 09:47 | NUR ---
PATIENT RECIEVED MEDS AT THIS TIME. GOWN CHANGED. SPILLED A SMALL AMOUNT OF COFFEE ON GOWN. STATES HE WOULD LIKE SOMETHING FOR NAUSEA. EXPLAINED I WILL ASK PHYSICIANS WHEN THEY COME. VERBALIZED UNDERSTANDING. REFUSED NICOTINE PATCH. CALL LIGHT WITHIN REACH.
[2020-11-06 09:56] VITALS: BP 168/74
[2020-11-06 14:06] VITALS: BP 156/75
[2020-11-06 18:38] VITALS: BP 126/59
--- NOTE | 2020-11-06 19:00 | NUR ---
BEDSIDE REPORT RECEIVED AND CARE OF PT ASSUMED. PT LYING IN SUPINE POSITION WITH EYES CLOSED. TELEMETRY IN PLACE PER ORDER AND READING SR AT THIS ASSESSMENT. NO IV SITED.
--- NOTE | 2020-11-06 21:05 | NUR ---
HS MEDICATIONS GIVEN. WILL CONTINUE TO MONITOR FOR NEEDS.
--- NOTE | 2020-11-06 21:15 | NUR ---
ALL LINEN CHANGED DUE TO INCONTINCE.
--- NOTE | 2020-11-07 00:55 | NUR ---
BED ALARM SOUNDING EVERY FEW MINUTES....PT UP TO BEDSIDE COMMODE FREQUENTLY WITH FREQUENT INCONTINENT BOWEL MOVEMENTS.
[2020-11-07 07:20] LABS: ALBUMIN 2.9 g/dL (3.4-5.0); ANION GAP 13.5 mmol/L (8-16); BILIRUBIN - TOTAL 2.35 mg/dL (0.2-1.3); CALCIUM 8.6 mg/dL (8.5-10.1); CARBON DIOXIDE 23.2 mmol/L (21.0-32.0); CREATININE - SERUM 1.2 mg/dL (0.6-1.3); MAGNESIUM - SERUM 1.6 mg/dL (1.8-2.4); POTASSIUM - SERUM 3.7 mmol/L (3.5-5.1)
[2020-11-07 07:43] LABS: BASOPHILS 0.5 % (0-2); EOSINOPHILS 2.4 % (0-7); HEMATOCRIT 34.2 % (42.0-54.0); HEMOGLOBIN 11.5 g/dL (13.5-17.5); INR 1.63 (0.85-1.17); MCHC 33.7 g/dL (31.0-37.0); MCV 100.8 fL (80.0-100.0); MEAN PLATELET VOLUME 9.2 fL (7.4-10.4); MONOCYTES 9.8 % (2-11); NEUTROPHILS 71.3 % (40-80); RBC 3.39 10x6/uL (4.20-6.10); RDW 15.1 % (11.5-14.5); WBC 8.8 10x3/uL (4.8-10.8)
[2020-11-07 07:51] LABS: PLATELET COUNT 109 10x3/uL (130-400)
--- NOTE | 2020-11-07 08:30 | NUR ---
AWAKE AND ALERT. ORIENTED TO SELF. DENIES NEEDS. LUNGS ARE CLEAR BILATERALLY, NO COUGH NOTED. SKIN IS INTACT WITHOUT REDNESS. NO IV AT THIS TIME. DENIES NEEDS EXCEPT AN EXTRA BLANKET, GIVEN PER STAFF.
[2020-11-07 08:51] VITALS: BP 130/60
--- NOTE | 2020-11-07 10:00 | NUR ---
ATE ALMOST ALL OF BREAKFAST. TOOK AM MEDS WITHOUT DIFFICULTY. DENIES NEEDS.
--- NOTE | 2020-11-07 11:00 | NUR ---
RESTING QUIETLY IN BED. REQUESTED POPSICLE AND GIVEN. DENIES NEEDS.
--- NOTE | 2020-11-07 12:30 | NUR ---
LUNCH SERVED IN ROOM. FEEDS SELF.
[2020-11-07 12:37] VITALS: BP 152/69
--- NOTE | 2020-11-07 13:30 | NUR ---
INCONTINENT LARGE AMOUNT OF LOOSE LIGHT BROWN STOOL. SKIN CARE AND LINENS CHANGED PER STAFF. REPOSITIONED IN BED FOR COMFORT.
--- NOTE | 2020-11-07 14:22 | NUR ---
OT NOTE: PT COMPLETED SIT TO STAND WITH CGA-MIN A. PT COMPLETED SIDE STEPS WITH CGA-MIN A. PT COMPLETED EOB SITTING WITH SPV. PT COMPLETED SELF FEEDING TASKS WITH SETUP. PT COMPLETED FACE AND HAND HYGIENE WITH SETUP. ALARM ON..CL IN REACH. [phone] CORBY HAMMONDS COTA
--- NOTE | 2020-11-07 16:00 | NUR ---
INCONTINENT LARGE AMOUNT OF LOOSE WATERY LIGHT BROWN STOOL. SKIN CARE AND LINENS CHANGED PER STAFF.
[2020-11-07 18:03] VITALS: BP 147/81
--- NOTE | 2020-11-07 19:19 | NUR ---
ATE MOST OF SUPPER TRAY. DENIES NEEDS. NO CHANGES NOTED.
[2020-11-07 19:47] VITALS: BP 127/55
[2020-11-08 04:30] VITALS: BP 121/51
[2020-11-08 06:32] LABS: INR 1.62 (0.85-1.17); PROTIME 17.8 SECONDS (11.6-15.0)
[2020-11-08 06:40] LABS: BASOPHILS 0.9 % (0-2); EOSINOPHILS 3.7 % (0-7); HEMOGLOBIN 10.5 g/dL (13.5-17.5); LYMPHOCYTES 19.6 % (15-50); MCH 34.4 pg (26.0-34.0); MCHC 34.9 g/dL (31.0-37.0); MONOCYTES 12.4 % (2-11); NEUTROPHILS 63.4 % (40-80); PLATELET COUNT 94 10x3/uL (130-400); RBC 3.04 10x6/uL (4.20-6.10); RDW 14.8 % (11.5-14.5); WBC 7.9 10x3/uL (4.8-10.8)
[2020-11-08 06:41] LABS: MCV 98.5 fL (80.0-100.0); PLATELET ESTIMATE DECREASED
[2020-11-08 07:02] LABS: ALBUMIN 2.7 g/dL (3.4-5.0); ANION GAP 13.5 mmol/L (8-16); BILIRUBIN - TOTAL 1.78 mg/dL (0.2-1.3); CARBON DIOXIDE 20.3 mmol/L (21.0-32.0); CREATININE - SERUM 1.1 mg/dL (0.6-1.3); MAGNESIUM - SERUM 1.4 mg/dL (1.8-2.4); POTASSIUM - SERUM 3.8 mmol/L (3.5-5.1); PROTEIN - SERUM 7.5 g/dL (6.4-8.2)
--- NOTE | 2020-11-08 08:00 | NUR ---
PATIENT IN BED WITH NO COMPLAINTS OR SIGNS OF DISTRESS. EYES CLOSED RESTING QUIETY. CALL LIGHT WITHIN REACH.
--- NOTE | 2020-11-08 08:32 | NUR ---
AUTHORIZATION WAS SUBMITTED ON 11/04/20 BY BRYON CLAUDIO LPN CLINICAL LIAISON. WE WILL CHECK ON THE STATUS OF THIS AUTHROIZATION TODAY AND LET RADHAROBYN KNOW THE DETERMINATION. WE WILL PROBABLY HAVE TO SEND UPDATES FROM SAT[facility], AND TO BE HONEST, HE HAS PROGRESSED AND IT MAY BE DENIED. WE WILL JUST HAVE TO SEE WHAT [facility] (FOR [facility]) HAS DECIDED. INDERJIT MOTT RN CLINCIAL LIAISON, [facility].
[2020-11-08 08:56] VITALS: BP 140/63
[2020-11-08 11:59] VITALS: BP 121/64
--- NOTE | 2020-11-08 12:45 | NUR ---
PATIENT IN BED WITH NO COMPLAINTS OR SIGNS OF DISTRESS. SITTING UP EATING LUNCH AT THIS TIME. CALL LIGHT WITHIN REACH.
[2020-11-08 17:00] VITALS: BP 121/46
--- NOTE | 2020-11-08 17:29 | NUR ---
LEFT CONFIDENTIAL VOICEMAIL FOR PAGE Gipson RN CASE MANGER THAT PEER TO PEER HAS JUST BEEN OFFERED ON THIS PATIENT AND IS VIABLE UNTIL NOVEMBER 09, 2020 AT NOON THE NUMBER TO CALL IS [phone], OPTION 5. THE CALL MUST BE MADE BY , HIDE PULLER OR FRANNY.- BRYON CLAUDIO. BLOCK GREASER, CLINICAL LIAISON
--- NOTE | 2020-11-08 19:15 | NUR ---
PATIENT SITTING UP IN BED EATING POPSICLE. REPORT GIVEN TO TO NIGHT RN. NO COMPLAINTS OR SIGNS OF DISTRESS. CALL LIGHT WITHIN REACH.
[2020-11-08 19:35] VITALS: BP 99/48
--- NOTE | 2020-11-09 04:35 | NUR ---
PATIENT CONTINUES TO HAVE CONFUSION, PAIN MANAGED WITH THE PRESCRIBED PAIN MEDICATION, HE IS CURRENTLY RESTING IN BED, POSY ALARM IN PLACE
[2020-11-09 05:15] VITALS: BP 118/49
[2020-11-09 06:41] LABS: BASOPHILS 0.9 % (0-2); EOSINOPHILS 2.8 % (0-7); HEMATOCRIT 30.6 % (42.0-54.0); HEMOGLOBIN 10.5 g/dL (13.5-17.5); LYMPHOCYTES 16.2 % (15-50); MCH 34.3 pg (26.0-34.0); MCHC 34.3 g/dL (31.0-37.0); MEAN PLATELET VOLUME 8.8 fL (7.4-10.4); MONOCYTES 9.8 % (2-11); NEUTROPHILS 70.3 % (40-80); PLATELET COUNT 94 10x3/uL (130-400); RBC 3.06 10x6/uL (4.20-6.10); RDW 15.2 % (11.5-14.5); WBC 6.9 10x3/uL (4.8-10.8)
[2020-11-09 07:03] LABS: INR 1.64 (0.85-1.17)
[2020-11-09 07:08] LABS: ALBUMIN 2.7 g/dL (3.4-5.0); ANION GAP 12.6 mmol/L (8-16); BILIRUBIN - TOTAL 1.49 mg/dL (0.2-1.3); CALCIUM 8.2 mg/dL (8.5-10.1); CARBON DIOXIDE 22.8 mmol/L (21.0-32.0); CREATININE - SERUM 1.3 mg/dL (0.6-1.3); MAGNESIUM - SERUM 1.6 mg/dL (1.8-2.4); POTASSIUM - SERUM 3.4 mmol/L (3.5-5.1); PROTEIN - SERUM 7.5 g/dL (6.4-8.2)
[2020-11-09 08:10] VITALS: BP 135/66
[2020-11-09 11:31] VITALS: BP 129/51
--- NOTE | 2020-11-09 11:37 | MORECARE ---
CASE MANAGEMENT DISCHARGE SUMMARY PATIENT: AIDA AZAR UNIT: [id number] ADM DATE: 10/30/20 AGE: 70 : 50 SEX: M ROOM/BED: D.2219 AUTHOR: LUCILLE,DOC PHYSICIAN: REFERRING PHYSICIAN: MILVIA LIAO MD DATE OF SERVICE: 11/09/20 Case Management Discharge Planning Summary COMMENTS ENTERED DATE: 11/09/20 11:28 CT COMMENT TYPE: Discharge Planning REVIEWER: Anay Coe RECEIVED DENIAL FOR INPATIENT REHAB, PRODUCTION ENGINEER TRACK WILL DO THE P2P TODAY TO TRY TO GET THE DENIAL OVER TURNED ENTERED DATE: 11/01/20 13:56 CT COMMENT TYPE: Discharge Planning REVIEWER: Anay Coe CM met with patient & daughter to complete initial dc planning assessment. CM educated patient on the CM role and verbal consent given by patient to complete assessment. Patient lives at home with his daughter. He just moved to [place] about 6 weeks ago. Per his daughter he has a cane and a shower chair at home. He does not have a walker. He can meet his basic ADL's. Dary stated that he use to be a heavy drinker, but he only has a couple beers at her home. She said that he has an appointment on November 11 to see if he can have surgery on his hernias. CM discussed availability of home health, rehab services, and medical equipment. We will wait and see what PT/OT evaluations state to have a safe discharge plan. CM will continue to follow and will assist as needed with dc plans/needs Patient's new physical address is [address] [place] [phone] DCP REVIEW SUMMARY ANTICIPATED D/C DATE: EXPECTED LOS : CASE STATUS: DCP Initiated INITIAL REVIEW: 10/29/2020 INITIAL REVIEWER: Anay Coe FINAL DISCHARGE DISPOSITION: : FINAL REVIEWER: FINAL REVIEW DATE: DCP Focus Questions & Answers DCP Screen QUESTION: ANSWER High Risk Factors: : Hosp related to CHF, COPD, DM, End Stage Ds, CVA, CA DCP Evaluation QUESTION: ANSWER Patient and/or caregiver agree upon recommended discharge plan? : Yes Family / Caregiver's ability to cope with chronic illness: : a. Adequate (ability to meet patient's medical needs, ensures patient attends medical appts.) Patient's current cognitive status: : *Oriented to person, place, situation, time and present Patient gives permission to discuss discharge plans with: (name, relationship and number) : DARY MCGOWAN Patient's ability to cope with chronic illness : a. Adequate (0-3 ED visits in 6 mos., adequate financial resources, attends scheduled appts.) Alternate discharge plan (if recommended plan not agreed upon by patient and/or caregiver): : WE WILL WAIT TO SEE WHAT PT/OT SAY Does the patient have the ability to pay for or attain post discharge needs / services? : Yes Functional screen assessment: : Basic needs can adequately be met by self Family / Caregiver's ability to cope with chronic illness: : a. Adequate (ability to meet patient's medical needs, ensures patient attends medical appts.) Physical Status: : Independent with ADL's Is there a likelihood that the patient will require additional services to return to the preadmission environment? : Yes Living Arrangements: : Home with Extended Family Results of this evaluation have been discussed with: : Children Patient with capacity for self-care or can be cared for in same environment as prior to hospitalization? : Yes Living arrangements comments: : JUST MOVED IN WITH HIS DAUGHTER Baseline cognitive status: : *Oriented to person, place, situation, time and present Medication Management: : Patient states can read and understand medication labels Pharmacy name(s): : [facility] Does Patient have transportation to get home and to follow-up medical appointments when discharged from the hospital? : Yes Would patient like to participate in any Care Coordination programs (if applicable): : Not applicable Does the patient have electricity at home? : Yes Does the patient have running water in their house? : Yes Equipment in use: : Shower Chair Equipment in use: : Cane - Single Leg Mental health screen: : No mental health history Psychosocial status: : Independent adult (18-64) Abuse/Neglect: : Alcohol use - History of Resources / Services in place: : None DCP Re-evaluation QUESTION: ANSWER Would patient like to participate in any Care Coordination programs (if applicable): : Not applicable PATIENT: AIDA AZAR ENCOUNTER: [id number] MEDICAL RECORD#: [id number] ADMISSION DATE: 10/30/2020 DISCHARGE DATE: ATTENDING MD: MILVIA ROB : AGE: 70 MARITAL STATUS: S DC PLAN ID: [id number] FACILITY: [facility] PRINTED ON: 11/09/20 11:37 CT All edits/amendments must be made on the electronic document DICTATION DATE: 11/09/20 113 FRANKFURTER INSPECTOR: PHILOMENA 11/09/20 1136 RPT#: [id number] DC DATE: STATUS: ADM IN [facility] [address] [place] [address] END OF REPORT
--- NOTE | 2020-11-09 12:34 | MORECARE ---
CASE MANAGEMENT DISCHARGE SUMMARY PATIENT: AIDA AZAR UNIT: [id number] ADM DATE: 10/30/20 AGE: 70 : 50 SEX: M ROOM/BED: D.2219 AUTHOR: LUCILLE,DOC PHYSICIAN: REFERRING PHYSICIAN: MILVIA LIAO MD DATE OF SERVICE: 11/09/20 Case Management Discharge Planning Summary COMMENTS ENTERED DATE: 11/09/20 12:32 CT COMMENT TYPE: Discharge Planning REVIEWER: Anay Coe WASH OIL PUMP OPERATOR CALLED THE P2P NUMBER AROUND 11:30-11:40 AND WAS TOLD IT NEEDED TO BE COMPLETED BY 11, THE INSTRUCTIONS THAT I RECEIVED FROM INPATIENT REHAB WAS THAT IT NEEDED TO BE COMPLETED BY NOON, THE REP TOOK LENA'S NUMBER AND WILL HAVE THE MD CALL HER BACK??? ENTERED DATE: 11/09/20 11:28 CT COMMENT TYPE: Discharge Planning REVIEWER: Anay Coe RECEIVED DENIAL FOR INPATIENT REHAB, WASH OIL PUMP OPERATOR WILL DO THE P2P TODAY TO TRY TO GET THE DENIAL OVER TURNED ENTERED DATE: 11/01/20 13:56 CT COMMENT TYPE: Discharge Planning REVIEWER: Anay Coe CM met with patient & daughter to complete initial dc planning assessment. CM educated patient on the CM role and verbal consent given by patient to complete assessment. Patient lives at home with his daughter. He just moved to [place] about 6 weeks ago. Per his daughter he has a cane and a shower chair at home. He does not have a walker. He can meet his basic ADL's. Dary stated that he use to be a heavy drinker, but he only has a couple beers at her home. She said that he has an appointment on November 11 to see if he can have surgery on his hernias. CM discussed availability of home health, rehab services, and medical equipment. We will wait and see what PT/OT evaluations state to have a safe discharge plan. CM will continue to follow and will assist as needed with dc plans/needs Patient's new physical address is [address] [place] [phone] DCP REVIEW SUMMARY ANTICIPATED D/C DATE: EXPECTED LOS : CASE STATUS: DCP Initiated INITIAL REVIEW: 10/29/2020 INITIAL REVIEWER: Anay Coe FINAL DISCHARGE DISPOSITION: : FINAL REVIEWER: FINAL REVIEW DATE: DCP Focus Questions & Answers DCP Screen QUESTION: ANSWER High Risk Factors: : Hosp related to CHF, COPD, DM, End Stage Ds, CVA, CA DCP Evaluation QUESTION: ANSWER Patient and/or caregiver agree upon recommended discharge plan? : Yes Family / Caregiver's ability to cope with chronic illness: : a. Adequate (ability to meet patient's medical needs, ensures patient attends medical appts.) Patient's current cognitive status: : *Oriented to person, place, situation, time and present Patient gives permission to discuss discharge plans with: (name, relationship and number) : DARY MCGOWAN Patient's ability to cope with chronic illness : a. Adequate (0-3 ED visits in 6 mos., adequate financial resources, attends scheduled appts.) Alternate discharge plan (if recommended plan not agreed upon by patient and/or caregiver): : WE WILL WAIT TO SEE WHAT PT/OT SAY Does the patient have the ability to pay for or attain post discharge needs / services? : Yes Functional screen assessment: : Basic needs can adequately be met by self Family / Caregiver's ability to cope with chronic illness: : a. Adequate (ability to meet patient's medical needs, ensures patient attends medical appts.) Physical Status: : Independent with ADL's Is there a likelihood that the patient will require additional services to return to the preadmission environment? : Yes Living Arrangements: : Home with Extended Family Results of this evaluation have been discussed with: : Children Patient with capacity for self-care or can be cared for in same environment as prior to hospitalization? : Yes Living arrangements comments: : JUST MOVED IN WITH HIS DAUGHTER Baseline cognitive status: : *Oriented to person, place, situation, time and present Medication Management: : Patient states can read and understand medication labels Pharmacy name(s): : [facility] Does Patient have transportation to get home and to follow-up medical appointments when discharged from the hospital? : Yes Would patient like to participate in any Care Coordination programs (if applicable): : Not applicable Does the patient have electricity at home? : Yes Does the patient have running water in their house? : Yes Equipment in use: : Shower Chair Equipment in use: : Cane - Single Leg Mental health screen: : No mental health history Psychosocial status: : Independent adult (18-64) Abuse/Neglect: : Alcohol use - History of Resources / Services in place: : None DCP Re-evaluation QUESTION: ANSWER Would patient like to participate in any Care Coordination programs (if applicable): : Not applicable PATIENT: AIDA AZAR ENCOUNTER: [id number] MEDICAL RECORD#: [id number] ADMISSION DATE: 10/30/2020 DISCHARGE DATE: ATTENDING MD: MILVIA ROB : AGE: 70 MARITAL STATUS: S DC PLAN ID: [id number] FACILITY: [facility] PRINTED ON: 11/09/20 12:34 CT All edits/amendments must be made on the electronic document DICTATION DATE: 11/09/20 1234 IRRIGATION SUPERVISOR: PHILOMENA 11/09/20 1234 RPT#: [id number] DC DATE: STATUS: ADM IN [facility] [address] [place] [address] END OF REPORT
--- NOTE | 2020-11-09 13:37 | NUR ---
NOTIFIED PAGE Gipson RN, MAGISTRATE ASSISTANT THAT INSURANCE CONTINUED TO DENY PATIENT IRF AUTHORIZATION AFTER PEER TO PEER WAS COMPLETED. SAAD WITH [facility] STATED PATIENT'S NEED COULD BE MET AT A LOWER LEVEL OF CARE.-Alexandria Bettencourt lpn, cLINICAL LIAISON
--- NOTE | 2020-11-09 13:58 | MORECARE ---
CASE MANAGEMENT DISCHARGE SUMMARY PATIENT: AIDA AZAR UNIT: [id number] ADM DATE: 10/30/20 AGE: 70 : 50 SEX: M ROOM/BED: D.2219 AUTHOR: LUCILLE,DOC PHYSICIAN: REFERRING PHYSICIAN: MILVIA LIAO MD DATE OF SERVICE: 11/09/20 Case Management Discharge Planning Summary COMMENTS ENTERED DATE: 11/09/20 13:52 CT COMMENT TYPE: Discharge Planning REVIEWER: Anay Coe The p2p was complete and the denial was upheld. I spoke with his daughter about his options. She stated home health would be good. She thought that he would be agreeable to that. He is doing good with therapy. I will send the referral to [facility]. Dary, patient's daughter will be here tomorrow after her son's semester test to pick him up. ENTERED DATE: 11/09/20 12:32 CT COMMENT TYPE: Discharge Planning REVIEWER: Anay Coe APN CALLED THE P2P NUMBER AROUND 11:30-11:40 AND WAS TOLD IT NEEDED TO BE COMPLETED BY 11, THE INSTRUCTIONS THAT I RECEIVED FROM INPATIENT REHAB WAS THAT IT NEEDED TO BE COMPLETED BY NOON, THE REP TOOK MAGDIBrandan'S NUMBER AND WILL HAVE THE MD CALL HER BACK??? ENTERED DATE: 11/09/20 11:28 CT COMMENT TYPE: Discharge Planning REVIEWER: Anay Coe RECEIVED DENIAL FOR INPATIENT REHAB, STARR WILL DO THE P2P TODAY TO TRY TO GET THE DENIAL OVER TURNED ENTERED DATE: 11/01/20 13:56 CT COMMENT TYPE: Discharge Planning REVIEWER: Anay Saravanan CM met with patient & daughter to complete initial dc planning assessment. CM educated patient on the CM role and verbal consent given by patient to complete assessment. Patient lives at home with his daughter. He just moved to [place] about 6 weeks ago. Per his daughter he has a cane and a shower chair at home. He does not have a walker. He can meet his basic ADL's. Dary stated that he use to be a heavy drinker, but he only has a couple beers at her home. She said that he has an appointment on November 11 to see if he can have surgery on his hernias. CM discussed availability of home health, rehab services, and medical equipment. We will wait and see what PT/OT evaluations state to have a safe discharge plan. CM will continue to follow and will assist as needed with dc plans/needs Patient's new physical address is [address] [place] [phone] DCP REVIEW SUMMARY ANTICIPATED D/C DATE: EXPECTED LOS : CASE STATUS: DCP Initiated INITIAL REVIEW: 10/29/2020 INITIAL REVIEWER: Anay Coe FINAL DISCHARGE DISPOSITION: : FINAL REVIEWER: FINAL REVIEW DATE: DCP Focus Questions & Answers DCP Screen QUESTION: ANSWER High Risk Factors: : Hosp related to CHF, COPD, DM, End Stage Ds, CVA, CA DCP Evaluation QUESTION: ANSWER Patient and/or caregiver agree upon recommended discharge plan? : Yes Family / Caregiver's ability to cope with chronic illness: : a. Adequate (ability to meet patient's medical needs, ensures patient attends medical appts.) Patient's current cognitive status: : *Oriented to person, place, situation, time and present Patient gives permission to discuss discharge plans with: (name, relationship and number) : DARY MCGOWAN Patient's ability to cope with chronic illness : a. Adequate (0-3 ED visits in 6 mos., adequate financial resources, attends scheduled appts.) Alternate discharge plan (if recommended plan not agreed upon by patient and/or caregiver): : WE WILL WAIT TO SEE WHAT PT/OT SAY Does the patient have the ability to pay for or attain post discharge needs / services? : Yes Functional screen assessment: : Basic needs can adequately be met by self Family / Caregiver's ability to cope with chronic illness: : a. Adequate (ability to meet patient's medical needs, ensures patient attends medical appts.) Physical Status: : Independent with ADL's Is there a likelihood that the patient will require additional services to return to the preadmission environment? : Yes Living Arrangements: : Home with Extended Family Results of this evaluation have been discussed with: : Children Patient with capacity for self-care or can be cared for in same environment as prior to hospitalization? : Yes Living arrangements comments: : JUST MOVED IN WITH HIS DAUGHTER Baseline cognitive status: : *Oriented to person, place, situation, time and present Medication Management: : Patient states can read and understand medication labels Pharmacy name(s): : [facility] Does Patient have transportation to get home and to follow-up medical appointments when discharged from the hospital? : Yes Would patient like to participate in any Care Coordination programs (if applicable): : Not applicable Does the patient have electricity at home? : Yes Does the patient have running water in their house? : Yes Equipment in use: : Shower Chair Equipment in use: : Cane - Single Leg Mental health screen: : No mental health history Psychosocial status: : Independent adult (18-64) Abuse/Neglect: : Alcohol use - History of Resources / Services in place: : None DCP Re-evaluation QUESTION: ANSWER Would patient like to participate in any Care Coordination programs (if applicable): : Not applicable PATIENT: AIDA AZAR ENCOUNTER: [id number] MEDICAL RECORD#: [id number] ADMISSION DATE: 10/30/2020 DISCHARGE DATE: ATTENDING MD: MILVIA ROB : AGE: 70 MARITAL STATUS: S DC PLAN ID: [id number] FACILITY: [facility] PRINTED ON: 11/09/20 13:58 CT All edits/amendments must be made on the electronic document DICTATION DATE: 11/09/20 1358 TUBULAR RIVETER: DM 11/09/20 1358 RPT#: [id number] DC DATE: STATUS: ADM IN [facility] [address] [place] [address] END OF REPORT
--- NOTE | 2020-11-09 14:37 | NUR ---
Nutrition reassessment: Diet order: Regular low sodium PO intake 90% average of last 9 meals Labs reviewed; Lipase remains elevated Pain controlled with medication No new wt to assess +BM, loose Estimated needs based on IBW: 0145-2827 kcal (25-30 kcal/kg IBW) 70-85 gm protein (1.0-1.2 gm/kg IBW) 2947-1070 ml fluid or per MD Nutrition diagnosis: Potential for inadequate oral intake R/T continued elevated Lipase AEB pt with increased pain Nutrition goals: - PO intake will continue to be =/> 75% of meals, snacks - Meet est fluid needs without fluid overload - Stable dry wt - Glucose maintained at or near normal range Interventions: Will provide food choices with selective menus and honor food preferences. Pt is currently with good po intake. RDN will follow-up on continued progress toward nutrition goals within 5-7 days.
[2020-11-09 15:25] VITALS: BP 130/61
--- NOTE | 2020-11-09 17:12 | NUR ---
OT NOTE: PT LETHARGIC THIS AM, HOWEVER, ABLE TO PERFORM BED MOB WITH MIN ASSIST; AMB TO TOILET WITH MIN ASSIST; IN ROOM AMBULATION WITH MIN ASSIST; ABLE TO PERFORM UE AROM EXS WHILE SITTING UP ON EOB. PT REMAINS WEAK AND CONFUSED. RECOMMEND REHAB PRIOR TO DC HOME QUENTIN WILSON OTR/L [phone]
[2020-11-09 20:00] VITALS: BP 126/55
--- NOTE | 2020-11-10 03:13 | NUR ---
I have reviewed this patient and I concur with the Shift Assessment completed by the Licensed Practical Nurse today this shift.
[2020-11-10 04:00] VITALS: BP 132/60
[2020-11-10 07:13] LABS: BASOPHILS 2.4 % (0-2); EOSINOPHILS 2.5 % (0-7); HEMATOCRIT 30.6 % (42.0-54.0); HEMOGLOBIN 10.6 g/dL (13.5-17.5); LYMPHOCYTES 15.9 % (15-50); MCH 34.6 pg (26.0-34.0); MCHC 34.7 g/dL (31.0-37.0); MCV 99.5 fL (80.0-100.0); MEAN PLATELET VOLUME 8.6 fL (7.4-10.4); MONOCYTES 10.8 % (2-11); NEUTROPHILS 68.4 % (40-80); PLATELET COUNT 89 10x3/uL (130-400); RBC 3.08 10x6/uL (4.20-6.10); RDW 15.1 % (11.5-14.5); WBC 6.6 10x3/uL (4.8-10.8)
[2020-11-10 07:19] LABS: PLATELET ESTIMATE DECREASED
[2020-11-10 07:26] LABS: ALBUMIN 2.7 g/dL (3.4-5.0); ANION GAP 10.7 mmol/L (8-16); BILIRUBIN - TOTAL 1.63 mg/dL (0.2-1.3); CALCIUM 8.2 mg/dL (8.5-10.1); CREATININE - SERUM 1.2 mg/dL (0.6-1.3); POTASSIUM - SERUM 3.7 mmol/L (3.5-5.1); PROTEIN - SERUM 7.6 g/dL (6.4-8.2)
[2020-11-10 09:52] VITALS: BP 152/72
[2020-11-10] MEDS ORDERED: CHRONULAC30 ML PO (11:25)
[2020-11-10 12:36] VITALS: BP 124/61
--- NOTE | 2020-11-10 12:57 | MORECARE ---
CASE MANAGEMENT DISCHARGE SUMMARY PATIENT: AIDA AZAR UNIT: [id number] ADM DATE: 10/30/20 AGE: 70 : 50 SEX: M ROOM/BED: D.2219 AUTHOR: LUCILLE,DOC PHYSICIAN: REFERRING PHYSICIAN: MILVIA LIAO MD DATE OF SERVICE: 11/10/20 Case Management Discharge Planning Summary COMMENTS ENTERED DATE: 11/10/20 12:52 CT COMMENT TYPE: Discharge Planning REVIEWER: Anay Coe [facility] COULD NOT ACCEPT THE PATIENT TILL NEXT WEEK REFERRAL SENT TO [facility] AND I SPOKE WITH OTILIO AT [facility] YESTERDAY ABOUT THE REFERRAL ENTERED DATE: 11/09/20 13:52 CT COMMENT TYPE: Discharge Planning REVIEWER: Anay Coe The p2p was complete and the denial was upheld. I spoke with his daughter about his options. She stated home health would be good. She thought that he would be agreeable to that. He is doing good with therapy. I will send the referral to [facility]. Dary, patient's daughter will be here tomorrow after her son's semester test to pick him up. ENTERED DATE: 11/09/20 12:32 CT COMMENT TYPE: Discharge Planning REVIEWER: Anay Coe APN CALLED THE P2P NUMBER AROUND 11:30-11:40 AND WAS TOLD IT NEEDED TO BE COMPLETED BY 11, THE INSTRUCTIONS THAT I RECEIVED FROM INPATIENT REHAB WAS THAT IT NEEDED TO BE COMPLETED BY NOON, THE REP TOOK LENA'S NUMBER AND WILL HAVE THE MD CALL HER BACK??? ENTERED DATE: 11/09/20 11:28 CT COMMENT TYPE: Discharge Planning REVIEWER: Anay Coe RECEIVED DENIAL FOR INPATIENT REHAB, [employer] ADMINISTRATOR WILL DO THE P2P TODAY TO TRY TO GET THE DENIAL OVER TURNED ENTERED DATE: 11/01/20 13:56 CT COMMENT TYPE: Discharge Planning REVIEWER: Anay Coe CM met with patient & daughter to complete initial dc planning assessment. CM educated patient on the CM role and verbal consent given by patient to complete assessment. Patient lives at home with his daughter. He just moved to [place] about 6 weeks ago. Per his daughter he has a cane and a shower chair at home. He does not have a walker. He can meet his basic ADL's. Dary stated that he use to be a heavy drinker, but he only has a couple beers at her home. She said that he has an appointment on November 11 to see if he can have surgery on his hernias. CM discussed availability of home health, rehab services, and medical equipment. We will wait and see what PT/OT evaluations state to have a safe discharge plan. CM will continue to follow and will assist as needed with dc plans/needs Patient's new physical address is [address] [place] [id number] DCP REVIEW SUMMARY ANTICIPATED D/C DATE: EXPECTED LOS : CASE STATUS: DCP Initiated INITIAL REVIEW: 10/29/2020 INITIAL REVIEWER: Anay Coe FINAL DISCHARGE DISPOSITION: : FINAL REVIEWER: FINAL REVIEW DATE: DCP Focus Questions & Answers DCP Screen QUESTION: ANSWER High Risk Factors: : Hosp related to CHF, COPD, DM, End Stage Ds, CVA, CA DCP Evaluation QUESTION: ANSWER Patient and/or caregiver agree upon recommended discharge plan? : Yes Family / Caregiver's ability to cope with chronic illness: : a. Adequate (ability to meet patient's medical needs, ensures patient attends medical appts.) Patient's current cognitive status: : *Oriented to person, place, situation, time and present Patient gives permission to discuss discharge plans with: (name, relationship and number) : DARY MCGOWAN Patient's ability to cope with chronic illness : a. Adequate (0-3 ED visits in 6 mos., adequate financial resources, attends scheduled appts.) Alternate discharge plan (if recommended plan not agreed upon by patient and/or caregiver): : WE WILL WAIT TO SEE WHAT PT/OT SAY Does the patient have the ability to pay for or attain post discharge needs / services? : Yes Functional screen assessment: : Basic needs can adequately be met by self Family / Caregiver's ability to cope with chronic illness: : a. Adequate (ability to meet patient's medical needs, ensures patient attends medical appts.) Physical Status: : Independent with ADL's Is there a likelihood that the patient will require additional services to return to the preadmission environment? : Yes Living Arrangements: : Home with Extended Family Results of this evaluation have been discussed with: : Children Patient with capacity for self-care or can be cared for in same environment as prior to hospitalization? : Yes Living arrangements comments: : JUST MOVED IN WITH HIS DAUGHTER Baseline cognitive status: : *Oriented to person, place, situation, time and present Medication Management: : Patient states can read and understand medication labels Pharmacy name(s): : [facility] Does Patient have transportation to get home and to follow-up medical appointments when discharged from the hospital? : Yes Would patient like to participate in any Care Coordination programs (if applicable): : Not applicable Does the patient have electricity at home? : Yes Does the patient have running water in their house? : Yes Equipment in use: : Shower Chair Equipment in use: : Cane - Single Leg Mental health screen: : No mental health history Psychosocial status: : Independent adult (18-64) Abuse/Neglect: : Alcohol use - History of Resources / Services in place: : None DCP Re-evaluation QUESTION: ANSWER Would patient like to participate in any Care Coordination programs (if applicable): : Not applicable PATIENT: AIDA AZAR ENCOUNTER: [id number] MEDICAL RECORD#: [id number] ADMISSION DATE: 10/30/2020 DISCHARGE DATE: ATTENDING MD: MILVIA ROB : AGE: 70 MARITAL STATUS: S DC PLAN ID: [id number] FACILITY: [facility] PRINTED ON: 11/10/20 12:57 CT All edits/amendments must be made on the electronic document DICTATION DATE: 11/10/20 1257 INTERNAL AUDIT SENIOR MANAGER: PHILOMENA 11/10/20 1257 RPT#: [id number] DC DATE: STATUS: ADM IN [facility] [address] [place] [address] END OF REPORT
--- NOTE | 2020-11-10 15:08 | NUR ---
IV DISCONTINUED AND VERBALIZED UNDERSTANDING OF DISCHARGE INSTRUCTIONS WITH DAUGHTER PRESENT. VALUABLES RETURED AND SIGNED FOR . STABLE AT TIME OF DISCHARGE.
--- NOTE | 2020-11-10 15:20 | MORECARE ---
CASE MANAGEMENT DISCHARGE SUMMARY PATIENT: AIDA AZAR UNIT: [id number] ADM DATE: 10/30/20 AGE: 70 : 50 SEX: M ROOM/BED: D.2219 AUTHOR: LUCILLE,DOC PHYSICIAN: REFERRING PHYSICIAN: MILVIA LIAO MD DATE OF SERVICE: 11/10/20 Case Management Discharge Planning Summary COMMENTS ENTERED DATE: 11/10/20 15:09 CT COMMENT TYPE: Discharge Planning REVIEWER: Anay Coe IMM SERVED AND EXPLAINED ENTERED DATE: 11/10/20 12:52 CT COMMENT TYPE: Discharge Planning REVIEWER: Anay Coe [facility] COULD NOT ACCEPT THE PATIENT TILL NEXT WEEK REFERRAL SENT TO [facility] AND I SPOKE WITH OTILIO AT [facility] YESTERDAY ABOUT THE REFERRAL ENTERED DATE: 11/09/20 13:52 CT COMMENT TYPE: Discharge Planning REVIEWER: Anay Coe The p2p was complete and the denial was upheld. I spoke with his daughter about his options. She stated home health would be good. She thought that he would be agreeable to that. He is doing good with therapy. I will send the referral to [facility]. Dary, patient's daughter will be here tomorrow after her son's semester test to pick him up. ENTERED DATE: 11/09/20 12:32 CT COMMENT TYPE: Discharge Planning REVIEWER: Anay Coe APN CALLED THE P2P NUMBER AROUND 11:30-11:40 AND WAS TOLD IT NEEDED TO BE COMPLETED BY 11, THE INSTRUCTIONS THAT I RECEIVED FROM INPATIENT REHAB WAS THAT IT NEEDED TO BE COMPLETED BY NOON, THE REP TOOK LENA'S NUMBER AND WILL HAVE THE MD CALL HER BACK??? ENTERED DATE: 11/09/20 11:28 CT COMMENT TYPE: Discharge Planning REVIEWER: Anay Saravanan RECEIVED DENIAL FOR INPATIENT REHAB, DIRECTOR VOLUNTEER SERVICES WILL DO THE P2P TODAY TO TRY TO GET THE DENIAL OVER TURNED ENTERED DATE: 11/01/20 13:56 CT COMMENT TYPE: Discharge Planning REVIEWER: Anay Coe CM met with patient & daughter to complete initial dc planning assessment. CM educated patient on the CM role and verbal consent given by patient to complete assessment. Patient lives at home with his daughter. He just moved to [place] about 6 weeks ago. Per his daughter he has a cane and a shower chair at home. He does not have a walker. He can meet his basic ADL's. Dary stated that he use to be a heavy drinker, but he only has a couple beers at her home. She said that he has an appointment on November 11 to see if he can have surgery on his hernias. CM discussed availability of home health, rehab services, and medical equipment. We will wait and see what PT/OT evaluations state to have a safe discharge plan. CM will continue to follow and will assist as needed with dc plans/needs Patient's new physical address is [address] [place] [id number] DCP REVIEW SUMMARY ANTICIPATED D/C DATE: EXPECTED LOS : CASE STATUS: DCP Initiated INITIAL REVIEW: 10/29/2020 INITIAL REVIEWER: Anay Coe FINAL DISCHARGE DISPOSITION: : FINAL REVIEWER: FINAL REVIEW DATE: DCP Focus Questions & Answers DCP Screen QUESTION: ANSWER High Risk Factors: : Hosp related to CHF, COPD, DM, End Stage Ds, CVA, CA DCP Evaluation QUESTION: ANSWER Patient and/or caregiver agree upon recommended discharge plan? : Yes Family / Caregiver's ability to cope with chronic illness: : a. Adequate (ability to meet patient's medical needs, ensures patient attends medical appts.) Patient's current cognitive status: : *Oriented to person, place, situation, time and present Patient gives permission to discuss discharge plans with: (name, relationship and number) : DAUGHTERDARY Patient's ability to cope with chronic illness : a. Adequate (0-3 ED visits in 6 mos., adequate financial resources, attends scheduled appts.) Alternate discharge plan (if recommended plan not agreed upon by patient and/or caregiver): : WE WILL WAIT TO SEE WHAT PT/OT SAY Does the patient have the ability to pay for or attain post discharge needs / services? : Yes Functional screen assessment: : Basic needs can adequately be met by self Family / Caregiver's ability to cope with chronic illness: : a. Adequate (ability to meet patient's medical needs, ensures patient attends medical appts.) Physical Status: : Independent with ADL's Is there a likelihood that the patient will require additional services to return to the preadmission environment? : Yes Living Arrangements: : Home with Extended Family Results of this evaluation have been discussed with: : Children Patient with capacity for self-care or can be cared for in same environment as prior to hospitalization? : Yes Living arrangements comments: : JUST MOVED IN WITH HIS DAUGHTER Baseline cognitive status: : *Oriented to person, place, situation, time and present Medication Management: : Patient states can read and understand medication labels Pharmacy name(s): : [facility] Does Patient have transportation to get home and to follow-up medical appointments when discharged from the hospital? : Yes Would patient like to participate in any Care Coordination programs (if applicable): : Not applicable Does the patient have electricity at home? : Yes Does the patient have running water in their house? : Yes Equipment in use: : Shower Chair Equipment in use: : Cane - Single Leg Mental health screen: : No mental health history Psychosocial status: : Independent adult (18-64) Abuse/Neglect: : Alcohol use - History of Resources / Services in place: : None DCP Re-evaluation QUESTION: ANSWER Would patient like to participate in any Care Coordination programs (if applicable): : Not applicable PATIENT: AIDA AZAR ENCOUNTER: [id number] MEDICAL RECORD#: [id number] ADMISSION DATE: 10/30/2020 DISCHARGE DATE: 11/10/2020 ATTENDING MD: MILVIA ROB : AGE: 70 MARITAL STATUS: S DC PLAN ID: [id number] FACILITY: [facility] PRINTED ON: 11/10/20 15:20 CT All edits/amendments must be made on the electronic document DICTATION DATE: 11/10/20 1520 [employer]OPLES[employer]FT HCM DEVELOPER: PHILOMENA 11/10/20 1520 RPT#: [id number] DC DATE:11/10/20 STATUS: DIS IN [facility] [address] [place] [address] END OF REPORT
--- NOTE | 2020-11-10 15:50 | MORECARE ---
CASE MANAGEMENT DISCHARGE SUMMARY PATIENT: AIDA AZAR UNIT: [id number] ADM DATE: 10/30/20 AGE: 70 : 50 SEX: M ROOM/BED: D.2219 AUTHOR: LUICLLE,DOC PHYSICIAN: REFERRING PHYSICIAN: MILVIA LIAO MD DATE OF SERVICE: 11/10/20 Case Management Discharge Planning Summary COMMENTS ENTERED DATE: 11/10/20 15:36 CT COMMENT TYPE: Discharge Planning REVIEWER: Anay Coe PATIENT WAS DISCHARGED HOME WITH [facility] HIS DAUGHTER WAS HIS VEHICLE DISMANTLER HOME ENTERED DATE: 11/10/20 15:09 CT COMMENT TYPE: Discharge Planning REVIEWER: Anay Coe IMM SERVED AND EXPLAINED ENTERED DATE: 11/10/20 12:52 CT COMMENT TYPE: Discharge Planning REVIEWER: Anay Coe [facility] COULD NOT ACCEPT THE PATIENT TILL NEXT WEEK REFERRAL SENT TO [facility] AND I SPOKE WITH OTILIO AT [facility] YESTERDAY ABOUT THE REFERRAL ENTERED DATE: 11/09/20 13:52 CT COMMENT TYPE: Discharge Planning REVIEWER: Anay Coe The p2p was complete and the denial was upheld. I spoke with his daughter about his options. She stated home health would be good. She thought that he would be agreeable to that. He is doing good with therapy. I will send the referral to [facility]. Dary, patient's daughter will be here tomorrow after her son's semester test to pick him up. ENTERED DATE: 11/09/20 12:32 CT COMMENT TYPE: Discharge Planning REVIEWER: Anay MALAVEN CALLED THE P2P NUMBER AROUND 11:30-11:40 AND WAS TOLD IT NEEDED TO BE COMPLETED BY 11, THE INSTRUCTIONS THAT I RECEIVED FROM INPATIENT REHAB WAS THAT IT NEEDED TO BE COMPLETED BY NOON, THE REP TOOK LENA'S NUMBER AND WILL HAVE THE MD CALL HER BACK??? ENTERED DATE: 11/09/20 11:28 CT COMMENT TYPE: Discharge Planning REVIEWER: Anay Coe RECEIVED DENIAL FOR INPATIENT REHAB, BUSINESS CONTINUITY MANAGER WILL DO THE P2P TODAY TO TRY TO GET THE DENIAL OVER TURNED ENTERED DATE: 11/01/20 13:56 CT COMMENT TYPE: Discharge Planning REVIEWER: Anay Coe CM met with patient & daughter to complete initial dc planning assessment. CM educated patient on the CM role and verbal consent given by patient to complete assessment. Patient lives at home with his daughter. He just moved to [place] about 6 weeks ago. Per his daughter he has a cane and a shower chair at home. He does not have a walker. He can meet his basic ADL's. Dary stated that he use to be a heavy drinker, but he only has a couple beers at her home. She said that he has an appointment on November 11 to see if he can have surgery on his hernias. CM discussed availability of home health, rehab services, and medical equipment. We will wait and see what PT/OT evaluations state to have a safe discharge plan. CM will continue to follow and will assist as needed with dc plans/needs Patient's new physical address is [address] [place] [id number] DCP REVIEW SUMMARY ANTICIPATED D/C DATE: EXPECTED LOS : CASE STATUS: DCP Initiated INITIAL REVIEW: 10/29/2020 INITIAL REVIEWER: Anay Coe FINAL DISCHARGE DISPOSITION: : FINAL REVIEWER: FINAL REVIEW DATE: DCP Focus Questions & Answers DCP Screen QUESTION: ANSWER High Risk Factors: : Hosp related to CHF, COPD, DM, End Stage Ds, CVA, CA DCP Evaluation QUESTION: ANSWER Patient and/or caregiver agree upon recommended discharge plan? : Yes Family / Caregiver's ability to cope with chronic illness: : a. Adequate (ability to meet patient's medical needs, ensures patient attends medical appts.) Patient's current cognitive status: : *Oriented to person, place, situation, time and present Patient gives permission to discuss discharge plans with: (name, relationship and number) : DAUGHTERDARY Patient's ability to cope with chronic illness : a. Adequate (0-3 ED visits in 6 mos., adequate financial resources, attends scheduled appts.) Alternate discharge plan (if recommended plan not agreed upon by patient and/or caregiver): : WE WILL WAIT TO SEE WHAT PT/OT SAY Does the patient have the ability to pay for or attain post discharge needs / services? : Yes Functional screen assessment: : Basic needs can adequately be met by self Family / Caregiver's ability to cope with chronic illness: : a. Adequate (ability to meet patient's medical needs, ensures patient attends medical appts.) Physical Status: : Independent with ADL's Is there a likelihood that the patient will require additional services to return to the preadmission environment? : Yes Living Arrangements: : Home with Extended Family Results of this evaluation have been discussed with: : Children Patient with capacity for self-care or can be cared for in same environment as prior to hospitalization? : Yes Living arrangements comments: : JUST MOVED IN WITH HIS DAUGHTER Baseline cognitive status: : *Oriented to person, place, situation, time and present Medication Management: : Patient states can read and understand medication labels Pharmacy name([facility]): : [facility] Does Patient have transportation to get home and to follow-up medical appointments when discharged from the hospital? : Yes Would patient like to participate in any Care Coordination programs (if applicable): : Not applicable Does the patient have electricity at home? : Yes Does the patient have running water in their house? : Yes Equipment in use: : Shower Chair Equipment in use: : Cane - Single Leg Mental health screen: : No mental health history Psychosocial status: : Independent adult (18-64) Abuse/Neglect: : Alcohol use - History of Resources / Services in place: : None DCP Re-evaluation QUESTION: ANSWER Would patient like to participate in any Care Coordination programs (if applicable): : Not applicable PATIENT: AIDA AZAR ENCOUNTER: [id number] MEDICAL RECORD#: [id number] ADMISSION DATE: 10/30/2020 DISCHARGE DATE: 11/10/2020 ATTENDING MD: MILVIA ROB : AGE: 70 MARITAL STATUS: S DC PLAN ID: [id number] FACILITY: [facility] PRINTED ON: 11/10/20 15:50 CT All edits/amendments must be made on the electronic document DICTATION DATE: 11/10/20 1549 TERMINAL CARMAN: PHILOMENA 11/10/20 1549 RPT#: [id number] DC DATE:11/10/20 STATUS: DIS IN [facility] [address] [place] [address] END OF REPORT
--- NOTE | 2020-11-11 08:03 | MORECARE ---
CASE MANAGEMENT DISCHARGE SUMMARY PATIENT: AIDA AZAR UNIT: [id number] ADM DATE: 10/30/20 AGE: 70 : 50 SEX: M ROOM/BED: D.2219 AUTHOR: LUCILLE,DOC PHYSICIAN: REFERRING PHYSICIAN: MILVIA LIAO MD DATE OF SERVICE: 11/11/20 Case Management Discharge Planning Summary COMMENTS ENTERED DATE: 11/11/20 7:57 CT COMMENT TYPE: Discharge Planning REVIEWER: Anay Coe CLARIFICATION OF DISCHARGE DISPOSITION, PATIENT DISCHARGED TO HOME WITH [facility] AND START OF CARE FOR SATURDAY NOT HOSPICE PREVIOUSLY DOCUMENTED IN ERROR ENTERED DATE: 11/10/20 15:36 CT COMMENT TYPE: Discharge Planning REVIEWER: Anay Coe PATIENT WAS DISCHARGED HOME WITH [facility] HIS DAUGHTER WAS HIS LIFT TRUCK OPERATOR HOME ENTERED DATE: 11/10/20 15:09 CT COMMENT TYPE: Discharge Planning REVIEWER: Anay Coe IMM SERVED AND EXPLAINED ENTERED DATE: 11/10/20 12:52 CT COMMENT TYPE: Discharge Planning REVIEWER: Anay Coe [facility] COULD NOT ACCEPT THE PATIENT TILL NEXT WEEK REFERRAL SENT TO [facility] AND I SPOKE WITH OTILIO AT [facility] YESTERDAY ABOUT THE REFERRAL ENTERED DATE: 11/09/20 13:52 CT COMMENT TYPE: Discharge Planning REVIEWER: Anay Coe The p2p was complete and the denial was upheld. I spoke with his daughter about his options. She stated home health would be good. She thought that he would be agreeable to that. He is doing good with therapy. I will send the referral to [facility]. Dary, patient's daughter will be here tomorrow after her son's semester test to pick him up. ENTERED DATE: 11/09/20 12:32 CT COMMENT TYPE: Discharge Planning REVIEWER: Anay Coe APN CALLED THE P2P NUMBER AROUND 11:30-11:40 AND WAS TOLD IT NEEDED TO BE COMPLETED BY 11, THE INSTRUCTIONS THAT I RECEIVED FROM INPATIENT REHAB WAS THAT IT NEEDED TO BE COMPLETED BY NOON, THE REP TOOK LENA'S NUMBER AND WILL HAVE THE MD CALL HER BACK??? ENTERED DATE: 11/09/20 11:28 CT COMMENT TYPE: Discharge Planning REVIEWER: Anay Coe RECEIVED DENIAL FOR INPATIENT REHAB, [facility] WILL DO THE P2P TODAY TO TRY TO GET THE DENIAL OVER TURNED ENTERED DATE: 11/01/20 13:56 CT COMMENT TYPE: Discharge Planning REVIEWER: Anay Coe CM met with patient & daughter to complete initial dc planning assessment. CM educated patient on the CM role and verbal consent given by patient to complete assessment. Patient lives at home with his daughter. He just moved to [place] about 6 weeks ago. Per his daughter he has a cane and a shower chair at home. He does not have a walker. He can meet his basic ADL's. Dary stated that he use to be a heavy drinker, but he only has a couple beers at her home. She said that he has an appointment on November 11 to see if he can have surgery on his hernias. CM discussed availability of home health, rehab services, and medical equipment. We will wait and see what PT/OT evaluations state to have a safe discharge plan. CM will continue to follow and will assist as needed with dc plans/needs Patient's new physical address is [address] [facility] [address] DCP REVIEW SUMMARY ANTICIPATED D/C DATE: EXPECTED LOS : CASE STATUS: DCP Initiated INITIAL REVIEW: 10/29/2020 INITIAL REVIEWER: Anay Coe FINAL DISCHARGE DISPOSITION: : FINAL REVIEWER: FINAL REVIEW DATE: DCP Focus Questions & Answers DCP Screen QUESTION: ANSWER High Risk Factors: : Hosp related to CHF, COPD, DM, End Stage Ds, CVA, CA DCP Evaluation QUESTION: ANSWER Patient and/or caregiver agree upon recommended discharge plan? : Yes Patient's current cognitive status: : *Oriented to person, place, situation, time and present Patient's ability to cope with chronic illness : a. Adequate (0-3 ED visits in 6 mos., adequate financial resources, attends scheduled appts.) Patient gives permission to discuss discharge plans with: (name, relationship and number) : DARY MCGOWAN Family / Caregiver's ability to cope with chronic illness: : a. Adequate (ability to meet patient's medical needs, ensures patient attends medical appts.) Alternate discharge plan (if recommended plan not agreed upon by patient and/or caregiver): : WE WILL WAIT TO SEE WHAT PT/OT SAY Does the patient have the ability to pay for or attain post discharge needs / services? : Yes Functional screen assessment: : Basic needs can adequately be met by self Family / Caregiver's ability to cope with chronic illness: : a. Adequate (ability to meet patient's medical needs, ensures patient attends medical appts.) Physical Status: : Independent with ADL's Is there a likelihood that the patient will require additional services to return to the preadmission environment? : Yes Living Arrangements: : Home with Extended Family Results of this evaluation have been discussed with: : Children Patient with capacity for self-care or can be cared for in same environment as prior to hospitalization? : Yes Baseline cognitive status: : *Oriented to person, place, situation, time and present Living arrangements comments: : JUST MOVED IN WITH HIS DAUGHTER Medication Management: : Patient states can read and understand medication labels Pharmacy name(s): : [facility] Does Patient have transportation to get home and to follow-up medical appointments when discharged from the hospital? : Yes Would patient like to participate in any Care Coordination programs (if applicable): : Not applicable Does the patient have electricity at home? : Yes Does the patient have running water in their house? : Yes Equipment in use: : Shower Chair Equipment in use: : Cane - Single Leg Mental health screen: : No mental health history Psychosocial status: : Independent adult (18-64) Abuse/Neglect: : Alcohol use - History of Resources / Services in place: : None DCP Re-evaluation QUESTION: ANSWER Would patient like to participate in any Care Coordination programs (if applicable): : Not applicable PATIENT: AIDA AZAR ENCOUNTER: [id number] MEDICAL RECORD#: [id number] ADMISSION DATE: 10/30/2020 DISCHARGE DATE: 11/10/2020 ATTENDING MD: MILVIA ROB : AGE: 70 MARITAL STATUS: S DC PLAN ID: [id number] FACILITY: [facility] PRINTED ON: 11/11/20 8:03 CT All edits/amendments must be made on the electronic document DICTATION DATE: 11/11/20802 VEHICLE ASSEMBLY INSPECTOR: PHILOMENA 11/11/20802 RPT#: [id number] DC DATE:11/10/20 STATUS: DIS IN [facility] [address] [place] [address] END OF REPORT
--- NOTE | 2020-11-14 09:47 | MORECARE ---
CASE MANAGEMENT DISCHARGE SUMMARY PATIENT: AIDA AZAR UNIT: [id number] ADM DATE: 10/30/20 AGE: 70 : 50 SEX: M ROOM/BED: D.2219 AUTHOR: LUCILLE,DOC PHYSICIAN: REFERRING PHYSICIAN: MILVIA LIAO MD DATE OF SERVICE: 11/14/20 Case Management Discharge Planning Summary COMMENTS ENTERED DATE: 11/11/20 7:57 CT COMMENT TYPE: Discharge Planning REVIEWER: Anay Coe CLARIFICATION OF DISCHARGE DISPOSITION, PATIENT DISCHARGED TO HOME WITH [facility] AND START OF CARE FOR SATURDAY NOT HOSPICE PREVIOUSLY DOCUMENTED IN ERROR ENTERED DATE: 11/10/20 15:36 CT COMMENT TYPE: Discharge Planning REVIEWER: Anay Coe PATIENT WAS DISCHARGED HOME WITH [facility] HIS DAUGHTER WAS HIS NETWORK ARCHITECT MANAGER HOME ENTERED DATE: 11/10/20 15:09 CT COMMENT TYPE: Discharge Planning REVIEWER: Anay Coe IMM SERVED AND EXPLAINED ENTERED DATE: 11/10/20 12:52 CT COMMENT TYPE: Discharge Planning REVIEWER: Anay Coe [facility] COULD NOT ACCEPT THE PATIENT TILL NEXT WEEK REFERRAL SENT TO [facility] AND I SPOKE WITH OTILIO AT [facility] YESTERDAY ABOUT THE REFERRAL ENTERED DATE: 11/09/20 13:52 CT COMMENT TYPE: Discharge Planning REVIEWER: Anay Coe The p2p was complete and the denial was upheld. I spoke with his daughter about his options. She stated home health would be good. She thought that he would be agreeable to that. He is doing good with therapy. I will send the referral to [facility]. Dary, patient's daughter will be here tomorrow after her son's semester test to pick him up. ENTERED DATE: 11/09/20 12:32 CT COMMENT TYPE: Discharge Planning REVIEWER: Anay Coe APN CALLED THE P2P NUMBER AROUND 11:30-11:40 AND WAS TOLD IT NEEDED TO BE COMPLETED BY 11, THE INSTRUCTIONS THAT I RECEIVED FROM INPATIENT REHAB WAS THAT IT NEEDED TO BE COMPLETED BY NOON, THE REP TOOK LENA'S NUMBER AND WILL HAVE THE MD CALL HER BACK??? ENTERED DATE: 11/09/20 11:28 CT COMMENT TYPE: Discharge Planning REVIEWER: Anay Coe RECEIVED DENIAL FOR INPATIENT REHAB, [facility] WILL DO THE P2P TODAY TO TRY TO GET THE DENIAL OVER TURNED ENTERED DATE: 11/01/20 13:56 CT COMMENT TYPE: Discharge Planning REVIEWER: Anay Coe CM met with patient & daughter to complete initial dc planning assessment. CM educated patient on the CM role and verbal consent given by patient to complete assessment. Patient lives at home with his daughter. He just moved to [place] about 6 weeks ago. Per his daughter he has a cane and a shower chair at home. He does not have a walker. He can meet his basic ADL's. Dary stated that he use to be a heavy drinker, but he only has a couple beers at her home. She said that he has an appointment on November 11 to see if he can have surgery on his hernias. CM discussed availability of home health, rehab services, and medical equipment. We will wait and see what PT/OT evaluations state to have a safe discharge plan. CM will continue to follow and will assist as needed with dc plans/needs Patient's new physical address [address] [facility] [address] DCP REVIEW SUMMARY ANTICIPATED D/C DATE: EXPECTED LOS : CASE STATUS: DCP Initiated INITIAL REVIEW: 10/29/2020 INITIAL REVIEWER: Anay Coe FINAL DISCHARGE DISPOSITION: : FINAL REVIEWER: FINAL REVIEW DATE: DCP Focus Questions & Answers DCP Screen QUESTION: ANSWER High Risk Factors: : Hosp related to CHF, COPD, DM, End Stage Ds, CVA, CA DCP Evaluation QUESTION: ANSWER Patient and/or caregiver agree upon recommended discharge plan? : Yes Family / Caregiver's ability to cope with chronic illness: : a. Adequate (ability to meet patient's medical needs, ensures patient attends medical appts.) Patient's current cognitive status: : *Oriented to person, place, situation, time and present Patient gives permission to discuss discharge plans with: (name, relationship and number) : DARY MCGOWAN Patient's ability to cope with chronic illness : a. Adequate (0-3 ED visits in 6 mos., adequate financial resources, attends scheduled appts.) Alternate discharge plan (if recommended plan not agreed upon by patient and/or caregiver): : WE WILL WAIT TO SEE WHAT PT/OT SAY Does the patient have the ability to pay for or attain post discharge needs / services? : Yes Functional screen assessment: : Basic needs can adequately be met by self Family / Caregiver's ability to cope with chronic illness: : a. Adequate (ability to meet patient's medical needs, ensures patient attends medical appts.) Physical Status: : Independent with ADL's Is there a likelihood that the patient will require additional services to return to the preadmission environment? : Yes Living Arrangements: : Home with Extended Family Results of this evaluation have been discussed with: : Children Patient with capacity for self-care or can be cared for in same environment as prior to hospitalization? : Yes Living arrangements comments: : JUST MOVED IN WITH HIS DAUGHTER Baseline cognitive status: : *Oriented to person, place, situation, time and present Medication Management: : Patient states can read and understand medication labels Pharmacy name(s): : [facility] Does Patient have transportation to get home and to follow-up medical appointments when discharged from the hospital? : Yes Would patient like to participate in any Care Coordination programs (if applicable): : Not applicable Does the patient have electricity at home? : Yes Does the patient have running water in their house? : Yes Equipment in use: : Shower Chair Equipment in use: : Cane - Single Leg Mental health screen: : No mental health history Psychosocial status: : Independent adult (18-64) Abuse/Neglect: : Alcohol use - History of Resources / Services in place: : None DCP Re-evaluation QUESTION: ANSWER Would patient like to participate in any Care Coordination programs (if applicable): : Not applicable PATIENT: AIDA AZAR ENCOUNTER: [id number] MEDICAL RECORD#: [id number] ADMISSION DATE: 10/30/2020 DISCHARGE DATE: 11/10/2020 ATTENDING MD: MILVIA ROB : AGE: 70 MARITAL STATUS: S DC PLAN ID: [id number] FACILITY: [facility] PRINTED ON: 11/14/20 9:46 CT All edits/amendments must be made on the electronic document DICTATION DATE: 11/14/20945 MINE WEDGE SAWYER: PHILOMENA 11/14/20945 RPT#: [id number] DC DATE:11/10/20 STATUS: DIS IN [facility] [address] [place] [address] END OF REPORT
--- NOTE | 2020-11-14 13:08 | MORECARE ---
CASE MANAGEMENT DISCHARGE SUMMARY PATIENT: AIDA AZAR UNIT: [id number] ADM DATE: 10/30/20 AGE: 70 : 50 SEX: M ROOM/BED: D.2219 AUTHOR: LUCILLE,DOC PHYSICIAN: REFERRING PHYSICIAN: MILVIA LIAO MD DATE OF SERVICE: 11/14/20 Case Management Discharge Planning Summary COMMENTS ENTERED DATE: 11/11/20 7:57 CT COMMENT TYPE: Discharge Planning REVIEWER: Anay Coe CLARIFICATION OF DISCHARGE DISPOSITION, PATIENT DISCHARGED TO HOME WITH [facility] AND START OF CARE FOR SATURDAY NOT HOSPICE PREVIOUSLY DOCUMENTED IN ERROR ENTERED DATE: 11/10/20 15:36 CT COMMENT TYPE: Discharge Planning REVIEWER: Anay Coe PATIENT WAS DISCHARGED HOME WITH [facility] HIS DAUGHTER WAS HIS FOOD TECHNOLOGIST HOME ENTERED DATE: 11/10/20 15:09 CT COMMENT TYPE: Discharge Planning REVIEWER: Anay Coe IMM SERVED AND EXPLAINED ENTERED DATE: 11/10/20 12:52 CT COMMENT TYPE: Discharge Planning REVIEWER: Anay Coe [facility] COULD NOT ACCEPT THE PATIENT TILL NEXT WEEK REFERRAL SENT TO [facility] AND I SPOKE WITH OTILIO AT [facility] YESTERDAY ABOUT THE REFERRAL ENTERED DATE: 11/09/20 13:52 CT COMMENT TYPE: Discharge Planning REVIEWER: Anay Coe The p2p was complete and the denial was upheld. I spoke with his daughter about his options. She stated home health would be good. She thought that he would be agreeable to that. He is doing good with therapy. I will send the referral to [facility]. Dary, patient's daughter will be here tomorrow after her son's semester test to pick him up. ENTERED DATE: 11/09/20 12:32 CT COMMENT TYPE: Discharge Planning REVIEWER: Anay Coe APN CALLED THE P2P NUMBER AROUND 11:30-11:40 AND WAS TOLD IT NEEDED TO BE COMPLETED BY 11, THE INSTRUCTIONS THAT I RECEIVED FROM INPATIENT REHAB WAS THAT IT NEEDED TO BE COMPLETED BY NOON, THE REP TOOK LENA'S NUMBER AND WILL HAVE THE MD CALL HER BACK??? ENTERED DATE: 11/09/20 11:28 CT COMMENT TYPE: Discharge Planning REVIEWER: Anay Coe RECEIVED DENIAL FOR INPATIENT REHAB, [facility] WILL DO THE P2P TODAY TO TRY TO GET THE DENIAL OVER TURNED ENTERED DATE: 11/01/20 13:56 CT COMMENT TYPE: Discharge Planning REVIEWER: Anay Coe CM met with patient & daughter to complete initial dc planning assessment. CM educated patient on the CM role and verbal consent given by patient to complete assessment. Patient lives at home with his daughter. He just moved to [place] about 6 weeks ago. Per his daughter he has a cane and a shower chair at home. He does not have a walker. He can meet his basic ADL's. Dary stated that he use to be a heavy drinker, but he only has a couple beers at her home. She said that he has an appointment on November 11 to see if he can have surgery on his hernias. CM discussed availability of home health, rehab services, and medical equipment. We will wait and see what PT/OT evaluations state to have a safe discharge plan. CM will continue to follow and will assist as needed with dc plans/needs Patient's new physical address is [address] [facility] [address] DCP REVIEW SUMMARY ANTICIPATED D/C DATE: EXPECTED LOS : CASE STATUS: DCP Initiated INITIAL REVIEW: 10/29/2020 INITIAL REVIEWER: Anay Coe FINAL DISCHARGE DISPOSITION: : FINAL REVIEWER: FINAL REVIEW DATE: DCP Focus Questions & Answers DCP Screen QUESTION: ANSWER High Risk Factors: : Hosp related to CHF, COPD, DM, End Stage Ds, CVA, CA DCP Evaluation QUESTION: ANSWER Patient and/or caregiver agree upon recommended discharge plan? : Yes Family / Caregiver's ability to cope with chronic illness: : a. Adequate (ability to meet patient's medical needs, ensures patient attends medical appts.) Patient's current cognitive status: : *Oriented to person, place, situation, time and present Patient gives permission to discuss discharge plans with: (name, relationship and number) : DARY MCGOWAN Patient's ability to cope with chronic illness : a. Adequate (0-3 ED visits in 6 mos., adequate financial resources, attends scheduled appts.) Alternate discharge plan (if recommended plan not agreed upon by patient and/or caregiver): : WE WILL WAIT TO SEE WHAT PT/OT SAY Does the patient have the ability to pay for or attain post discharge needs / services? : Yes Functional screen assessment: : Basic needs can adequately be met by self Family / Caregiver's ability to cope with chronic illness: : a. Adequate (ability to meet patient's medical needs, ensures patient attends medical appts.) Physical Status: : Independent with ADL's Is there a likelihood that the patient will require additional services to return to the preadmission environment? : Yes Living Arrangements: : Home with Extended Family Results of this evaluation have been discussed with: : Children Patient with capacity for self-care or can be cared for in same environment as prior to hospitalization? : Yes Living arrangements comments: : JUST MOVED IN WITH HIS DAUGHTER Baseline cognitive status: : *Oriented to person, place, situation, time and present Medication Management: : Patient states can read and understand medication labels Pharmacy name(s): : [facility] Does Patient have transportation to get home and to follow-up medical appointments when discharged from the hospital? : Yes Would patient like to participate in any Care Coordination programs (if applicable): : Not applicable Does the patient have electricity at home? : Yes Does the patient have running water in their house? : Yes Equipment in use: : Shower Chair Equipment in use: : Cane - Single Leg Mental health screen: : No mental health history Psychosocial status: : Independent adult (18-64) Abuse/Neglect: : Alcohol use - History of Resources / Services in place: : None DCP Re-evaluation QUESTION: ANSWER Would patient like to participate in any Care Coordination programs (if applicable): : Not applicable PATIENT: AIDA AZAR ENCOUNTER: [id number] MEDICAL RECORD#: [id number] ADMISSION DATE: 10/30/2020 DISCHARGE DATE: 11/10/2020 ATTENDING MD: MILVIA ROB : AGE: 70 MARITAL STATUS: S DC PLAN ID: [id number] FACILITY: [facility] PRINTED ON: 11/14/20 13:08 CT All edits/amendments must be made on the electronic document DICTATION DATE: 11/14/20 1308 LOG TUMBLER: PHILOMENA 11/14/20 1308 RPT#: [id number] DC DATE:11/10/20 STATUS: DIS IN [facility] [address] [place] [address] END OF REPORT
== END 2020-11-10 15:09 | disposition home health service (06) | DRG 433 ==
LOC: D.ER 15:40 → D.MS 17:11 → OBSVTIME 17:11 → D.MS 10-30 17:06
PROVIDERS: Emergency Medicine; Family Medicine; Internal Medicine Gastroenterology; Radiology Vascular & Interventional Radiology; ADMIT Family Medicine; ATTEND Family Medicine
PROC: 0W9G3ZZ Drainage of Peritoneal Cavity, Percutaneous Approach (ICD-10-PCS; principal; 2020-10-30 11:00)
DX: K74.60 Unspecified cirrhosis of liver (principal); R18.8 Other ascites; D68.59 Other primary thrombophilia; K76.6 Portal hypertension; K86.1 Other chronic pancreatitis; E87.1 Hypo-osmolality and hyponatremia; G72.81 Critical illness myopathy; I10 Essential (primary) hypertension; D53.9 Nutritional anemia, unspecified; K40.90 Unilateral inguinal hernia, without obstruction or gangrene, not specified as recurrent; D73.5 Infarction of spleen; D69.6 Thrombocytopenia, unspecified; B19.20 Unspecified viral hepatitis C without hepatic coma; I86.8 Varicose veins of other specified sites

== ENCOUNTER 2020-11-10 19:26 | Inpatient (IN) | payer MEDICARE ==
[~2020-11-10] VITALS: Ht 172.7 cm; Wt 79.5 kg
[~2020-11-10 19:26] MED LIST changes: +CHRONULAC30 ML PO
[2020-11-10 19:30] VITALS: BP 160/70
[2020-11-10 19:56] LABS: BASOPHILS 0.9 % (0-2); EOSINOPHILS 2.6 % (0-7); HEMATOCRIT 31.8 % (42.0-54.0); HEMOGLOBIN 10.6 g/dL (13.5-17.5); LYMPHOCYTES 13.6 % (15-50); MCH 33.5 pg (26.0-34.0); MCHC 33.5 g/dL (31.0-37.0); MCV 100.1 fL (80.0-100.0); MEAN PLATELET VOLUME 8.8 fL (7.4-10.4); MONOCYTES 14.1 % (2-11); NEUTROPHILS 68.8 % (40-80); PLATELET COUNT 95 10x3/uL (130-400); RBC 3.17 10x6/uL (4.20-6.10); RDW 15.5 % (11.5-14.5)
[2020-11-10 20:07] LABS: ANION GAP 14.3 mmol/L (8-16); CALCIUM 8.8 mg/dL (8.5-10.1); CARBON DIOXIDE 20.4 mmol/L (21.0-32.0); CREATININE - SERUM 1.5 mg/dL (0.6-1.3); POTASSIUM - SERUM 3.7 mmol/L (3.5-5.1)
[2020-11-10 20:21] LABS: ALBUMIN 2.9 g/dL (3.4-5.0); BILIRUBIN - TOTAL 1.47 mg/dL (0.2-1.3)
[2020-11-10 21:09] LABS: BILIRUBIN NEGATIVE (NEGATIVE); KETONE NEGATIVE (NEGATIVE); NITRITE NEGATIVE (NEGATIVE); UROBILINOGEN NORMAL mg/dL (< 2)
[2020-11-10 21:13] LABS: BACTERIA FEW HPF (NONE SEEN); SQUAMOUS EPITHELIAL 0-5 HPF (0-4); WHITE CELLS - URINE 0-5 HPF (0-1)
[2020-11-10 21:17] LABS: UDS - AMPHET NEGATIVE QUAL (NEGATIVE); UDS - BARB NEGATIVE QUAL (NEGATIVE); UDS - BENZO POSITIVE QUAL (NEGATIVE); UDS - COCAINE NEGATIVE QUAL (NEGATIVE); UDS - OPIATE POSITIVE QUAL (NEGATIVE); UDS - PCP NEGATIVE QUAL (NEGATIVE); UDS - THC NEGATIVE QUAL (NEGATIVE)
[2020-11-10 21:30] VITALS: BP 129/51
[2020-11-10 21:46] LABS: PRO BNP 1203 pg/mL (0-125)
[2020-11-10 21:47] LABS: TROPONIN-I < 0.017 ng/mL (0.000-0.060)
--- NOTE | 2020-11-10 23:35 | NUR ---
PT FROM ER VIA W/C, PT CONFUSED, AMBULATED TO BED, PT RESP EVEN AND UNLABORED, NO DISTRESS NOTED, CL IN REACH, SR UP X 2.
[2020-11-10 23:40] VITALS: BP 138/57
--- NOTE | 2020-11-11 05:01 | NUR ---
I have reviewed this patient and I concur with the Shift Assessment completed by the Licensed Practical Nurse today this shift.
[2020-11-11 06:49] LABS: EOSINOPHILS 2.4 % (0-7); HEMATOCRIT 33.1 % (42.0-54.0); HEMOGLOBIN 11.5 g/dL (13.5-17.5); LYMPHOCYTES 14.3 % (15-50); MCH 34.7 pg (26.0-34.0); MCHC 34.8 g/dL (31.0-37.0); MCV 99.7 fL (80.0-100.0); MONOCYTES 11.9 % (2-11); NEUTROPHILS 70.4 % (40-80); PLATELET COUNT 98 10x3/uL (130-400); RBC 3.32 10x6/uL (4.20-6.10); RDW 15.1 % (11.5-14.5); WBC 7.7 10x3/uL (4.8-10.8)
[2020-11-11 06:51] LABS: APTT 41.4 SECONDS (22.8-39.4); INR 1.59 (0.85-1.17); PROTIME 17.6 SECONDS (11.6-15.0)
[2020-11-11 07:06] LABS: ALBUMIN 3.2 g/dL (3.4-5.0); ANION GAP 13.3 mmol/L (8-16); BILIRUBIN - TOTAL 2.04 mg/dL (0.2-1.3); CARBON DIOXIDE 22.3 mmol/L (21.0-32.0); CREATININE - SERUM 1.3 mg/dL (0.6-1.3); MAGNESIUM - SERUM 1.6 mg/dL (1.8-2.4); POTASSIUM - SERUM 3.6 mmol/L (3.5-5.1); PROTEIN - SERUM 8.7 g/dL (6.4-8.2)
[2020-11-11 08:27] VITALS: BP 160/86
[2020-11-11 13:18] VITALS: BMI 26.6
[2020-11-11 15:00] VITALS: BP 126/84
[2020-11-11 17:28] VITALS: BP 162/71; Ht 172.7 cm; Wt 79.5 kg
--- NOTE | 2020-11-11 19:00 | NUR ---
REPORT RECEIVED. PATIENT IS PLEASANTLY CONFUSING, LYING IN SEMI-FOWLERS POSITION. NO S/S OF DISTRESS OBSERVED, RR EVEN AND UNLABORED ON ROOM AIR. APPEARS JAUNDICE. PIV TO RT HAND, PATENT, INFUSING BANANA BAG. NO FURTHER NEEDS EXPRESSED. CL IN REACH, BED LOCKED AND LOWERED. LOU ALARM ON. WILL CPOC.
[2020-11-11 20:47] VITALS: BP 146/71
--- NOTE | 2020-11-12 00:36 | NUR ---
Entered room as pt was attempting to stand. Pt mottled up to knees. Attempted to assist pt into getting back in bed. Pt unsteady gait. Sat pt in bed and got assistance from CUSTOM SHOP WORKER pt get pt in bed. Assessed vitals. 02 84%, pt 134/68, RR 32, HR 90. Applied 02 at 2 liters, o2 increased to 95%. updated bedside nurse.
[2020-11-12 00:43] VITALS: BP 152/64
--- NOTE | 2020-11-12 01:00 | NUR ---
I have reviewed this patient and I concur with the Shift Assessment completed by the Licensed Practical Nurse today this shift.
[2020-11-12 05:37] VITALS: BP 160/69
[2020-11-12 06:13] LABS: BASOPHILS 0.8 % (0-2); EOSINOPHILS 1.7 % (0-7); HEMOGLOBIN 10.3 g/dL (13.5-17.5); LYMPHOCYTES 10.3 % (15-50); MCH 34.2 pg (26.0-34.0); MCHC 34.5 g/dL (31.0-37.0); MCV 99.2 fL (80.0-100.0); MEAN PLATELET VOLUME 8.9 fL (7.4-10.4); MONOCYTES 10.5 % (2-11); NEUTROPHILS 76.7 % (40-80); PLATELET COUNT 87 10x3/uL (130-400); RBC 3.03 10x6/uL (4.20-6.10); RDW 15.4 % (11.5-14.5); WBC 9.1 10x3/uL (4.8-10.8)
[2020-11-12 06:15] LABS: PLATELET ESTIMATE DECREASED
[2020-11-12 06:51] LABS: ALBUMIN 2.8 g/dL (3.4-5.0); ANION GAP 14.7 mmol/L (8-16); BILIRUBIN - TOTAL 2.15 mg/dL (0.2-1.3); CALCIUM 8.7 mg/dL (8.5-10.1); CREATININE - SERUM 1.1 mg/dL (0.6-1.3); MAGNESIUM - SERUM 1.4 mg/dL (1.8-2.4); POTASSIUM - SERUM 3.7 mmol/L (3.5-5.1); PROTEIN - SERUM 7.5 g/dL (6.4-8.2)
--- NOTE | 2020-11-12 07:00 | NUR ---
RECEIVED REPORT. ASSUMED CARE OF PATIENT. PATIENT SITTING TO SIDE OF BED, CONFUSED. REORIENTED TO SITUATION, PLACE, AND TIME. WHITE BOARD UPDATED, BEDSIDE SHIFT REPORT COMPLETE. PATIENT CONTINUES TO TRY AND GET OOB. LOU ALARM PATENT. CALL LIGHT WITHIN REACH. NO SITTER AVAILABLE AT THIS TIME.
[2020-11-12 09:17] VITALS: BP 137/70
--- NOTE | 2020-11-12 09:54 | NUR ---
PT OOB, RIPPED IV TUBING IN HALF, DISORIENTED, TRYING TO GO OUTSIDE. ASSISTED PATIENT TO SIT ON THE BED, REORIENTED. IV FLUIDS STOPPED ATTHIS TIME.
--- NOTE | 2020-11-12 10:38 | NUR ---
UNSUCCESSFUL X [address] IV. 22 GAUGE IV REMOVED FROM RIGHT HAND THAT PATIENT DISLODGED DURING TEARING HIS IV TUBING IN HALF. CATHETER TIP INTACT. NO BLEEDING FROM SITE. 2X2 GAUZE APPLIED AND SECURED WITH TAPE. PATIENT REMAINS CONFUSED AT THIS TIME. NO DISTRESS.
[2020-11-12 11:57] VITALS: BP 154/56
--- NOTE | 2020-11-12 12:48 | NUR ---
2 OTHER NURSES HAVE TRIED TO PLACE IV ON PATIENT AND HAVE BEEN UNSUCCESSFUL. PA MADE AWARE, AERODYNAMICS ENGINEER CONTACTED FOR ASSISTANCE TO PLACE IV.
--- NOTE | 2020-11-12 13:01 | NUR ---
PATIENT CONTINUES TO GET OF CHAIR AND AMBULATE TO HALLWAY. PATIENT IS BECOMING AGGRESSIVE AND STARTING TO THROW ITEMS AND ACT IF HE IS GOING TO STRIKE AT STAFF. PATIENT HAS NOW TORN OFF HIS TELEMETRY. CALLED AND SPOKE TO GWENDOLYN TO INFORM HER THAT PATIENT HAS TORN TELEMETRY OFF AND WILL NOT WEAR IT AT THIS TIME. MONITOR CLEANED AND AT NURSES STATION, WAITING TO SEE IF PATIENT WILL CALM DOWN BEFORE TELEMETRY UNIT IS RETURNED TO ICU SOLUTIONS MANAGER ARIEL.
--- NOTE | 2020-11-12 14:58 | NUR ---
SITTING IN CHAIR AT BEDSIDE, REQUIRES FREQUENT REORIENTATION. REMAINS WITH NO IV ACCESS. NO DISTRESS.
[2020-11-12 19:25] VITALS: BP 140/39
--- NOTE | 2020-11-12 19:45 | NUR ---
RECEIVED BEDSIDE REPORT. PT LAYING IN BED ORIENTATED TO SELF. NO IV ACCESS. SKIN APPEARS MILDLY JAUNDICED. URINE APPEARS DARK AN CONCENTRATED. BED LOU ON, ALL FALL PRECAUTIONS IN PLACE. CL IN REACH. WILL CONTINUE POC.
[2020-11-12 20:00] VITALS: BP 146/39
--- NOTE | 2020-11-13 05:12 | NUR ---
SALES ACCOUNT LEADER ASSISTED WITH FULL BED CHANGE, TOLERATED WELL. BED LOW, ALARM ON, CL IN REACH.
[2020-11-13 06:25] LABS: BASOPHILS 0.8 % (0-2); EOSINOPHILS 1.3 % (0-7); HEMATOCRIT 27.4 % (42.0-54.0); HEMOGLOBIN 9.6 g/dL (13.5-17.5); LYMPHOCYTES 11.2 % (15-50); MCH 34.6 pg (26.0-34.0); MCHC 34.9 g/dL (31.0-37.0); MCV 99.1 fL (80.0-100.0); MEAN PLATELET VOLUME 8.8 fL (7.4-10.4); MONOCYTES 11.6 % (2-11); NEUTROPHILS 75.1 % (40-80); PLATELET COUNT 84 10x3/uL (130-400); RBC 2.77 10x6/uL (4.20-6.10); RDW 15.1 % (11.5-14.5); WBC 11.3 10x3/uL (4.8-10.8)
--- NOTE | 2020-11-13 06:50 | NUR ---
BEDSIDE REPORT RECIEVED PATIENT AWAKE AND ALERT, SITTING UP ON SIDE OF BED. NO IV AT THIS TIME. NO O2 IN USE.
[2020-11-13 06:56] LABS: ALBUMIN 2.6 g/dL (3.4-5.0); ANION GAP 13.6 mmol/L (8-16); BILIRUBIN - TOTAL 2.18 mg/dL (0.2-1.3); CALCIUM 8.3 mg/dL (8.5-10.1); CARBON DIOXIDE 21.4 mmol/L (21.0-32.0); MAGNESIUM - SERUM 1.4 mg/dL (1.8-2.4); PROTEIN - SERUM 7.1 g/dL (6.4-8.2)
[2020-11-13 07:04] LABS: CREATININE - SERUM 1.4 mg/dL (0.6-1.3)
[2020-11-13 07:44] VITALS: BP 119/52
--- NOTE | 2020-11-13 09:00 | NUR ---
PATIENT SITTING UP ON SIDE OF BED. NO CURRENT PAIN OR DISTRESS. RESP EVEN AND UNLABORED ON ROOM AIR, O2 SAT AT 98. HEART SOUNDS REGULAR RATE AND RYTHYM. NO IV SITE, PATIENT PULLS OUT IVS. PATIENT CAN HOLD CONVERSATION USES URINAL AT TIMES. HAS LOU BED AND CHAIR ALARM IN USE.
[2020-11-13 12:02] VITALS: BP 108/57
[2020-11-13 15:37] VITALS: BP 133/57
--- NOTE | 2020-11-13 18:45 | NUR ---
ATTEMPTED SEVERAL TIMES TODAY ALONG WITH OTHER NURSES TO START IV IN PATIENT NO SUCCESS MULTIVITAMIN NOT RAN DUE TO NO IV. CALLED AND LEFT MESSAGE FOR IRON TO LET HER KNOW SITUATION.
--- NOTE | 2020-11-13 19:02 | NUR ---
SPOKE WITH IRON STATED IF IV COULDNT BE PLACED CONTACT RAFIA TO PLACE A LINE.
[2020-11-13 20:14] VITALS: BP 135/60
[2020-11-13 23:38] VITALS: BP 117/58
[2020-11-14 06:07] VITALS: BP 122/52
[2020-11-14 06:32] LABS: BASOPHILS 0.6 % (0-2); EOSINOPHILS 2.1 % (0-7); HEMATOCRIT 28.5 % (42.0-54.0); LYMPHOCYTES 13.4 % (15-50); MCH 34.8 pg (26.0-34.0); MCV 99.4 fL (80.0-100.0); MEAN PLATELET VOLUME 8.5 fL (7.4-10.4); MONOCYTES 10.7 % (2-11); NEUTROPHILS 73.2 % (40-80); PLATELET COUNT 83 10x3/uL (130-400); RBC 2.86 10x6/uL (4.20-6.10); RDW 15.3 % (11.5-14.5)
[2020-11-14 06:58] LABS: ALBUMIN 2.7 g/dL (3.4-5.0); ANION GAP 12.7 mmol/L (8-16); BILIRUBIN - TOTAL 2.07 mg/dL (0.2-1.3); CALCIUM 8.6 mg/dL (8.5-10.1); CARBON DIOXIDE 21.2 mmol/L (21.0-32.0); CREATININE - SERUM 1.2 mg/dL (0.6-1.3); MAGNESIUM - SERUM 1.5 mg/dL (1.8-2.4); POTASSIUM - SERUM 3.9 mmol/L (3.5-5.1); PROTEIN - SERUM 7.5 g/dL (6.4-8.2)
[2020-11-14 07:16] LABS: WBC 7.7 10x3/uL (4.8-10.8)
--- NOTE | 2020-11-14 08:00 | NUR ---
PT RECEIVED AWAKE AND ALERT IN BED, LITTLE CONFUSED BUT COOPERATIVE. REORIENTED AND POSITIONED FOR BREAKFAST. BED ALARM IN USE.
--- NOTE | 2020-11-14 09:24 | MORECARE ---
CASE MANAGEMENT DISCHARGE SUMMARY PATIENT: AIDA AAZR UNIT: [id number] ADM DATE: 11/10/20 AGE: 70 : 50 SEX: M ROOM/BED: D.2109 AUTHOR: LUCILLEDOC PHYSICIAN: REFERRING PHYSICIAN: RENEE NICE MD DATE OF SERVICE: 11/14/20 Case Management Discharge Planning Summary DCP REVIEW SUMMARY ANTICIPATED D/C DATE: EXPECTED LOS : CASE STATUS: DCP Initiated INITIAL REVIEW: 11/10/2020 INITIAL REVIEWER: Pat Watkins FINAL DISCHARGE DISPOSITION: : FINAL REVIEWER: FINAL REVIEW DATE: DCP Focus Questions & Answers QUESTION: ANSWER : PATIENT: AIDA AZAR ENCOUNTER: [id number] MEDICAL RECORD#: [id number] ADMISSION DATE: 11/10/2020 DISCHARGE DATE: ATTENDING MD: JOHNNY MUNOZ : AGE: 70 MARITAL STATUS: S DC PLAN ID: [id number] FACILITY: [facility] PRINTED ON: 11/14/20 9:24 CT All edits/amendments must be made on the electronic document DICTATION DATE: 11/14/20923 POLISH COMPOUNDER: DM 11/14/20923 RPT#: [id number] DC DATE: STATUS: ADM IN [facility] [address] [place] [address] END OF REPORT
--- NOTE | 2020-11-14 09:36 | MORECARE ---
CASE MANAGEMENT DISCHARGE SUMMARY PATIENT: AIDA AZAR UNIT: [id number] ADM DATE: 11/10/20 AGE: 70 : 50 SEX: M ROOM/BED: D.2109 AUTHOR: LUCILLE,DOC PHYSICIAN: REFERRING PHYSICIAN: RENEE NICE MD DATE OF SERVICE: 11/14/20 Case Management Discharge Planning Summary COMMENTS ENTERED DATE: 11/14/20 9:24 CT COMMENT TYPE: Discharge Planning REVIEWER: Pat Watkins CM attempted to call patient's daughterDary for discharge planning/needs. Dary does not have a voice mailbox that has been set up yet. I will try again later. DCP REVIEW SUMMARY ANTICIPATED D/C DATE: EXPECTED LOS : CASE STATUS: DCP Initiated INITIAL REVIEW: 11/10/2020 INITIAL REVIEWER: Pat Watkins FINAL DISCHARGE DISPOSITION: : FINAL REVIEWER: FINAL REVIEW DATE: DCP Focus Questions & Answers QUESTION: ANSWER : PATIENT: AIDA AZAR ENCOUNTER: [id number] MEDICAL RECORD#: [id number] ADMISSION DATE: 11/10/2020 DISCHARGE DATE: ATTENDING MD: JOHNNY MUNOZ : AGE: 70 MARITAL STATUS: S DC PLAN ID: [id number] FACILITY: [facility] PRINTED ON: 11/14/20 9:35 CT All edits/amendments must be made on the electronic document DICTATION DATE: 11/14/20934 EDUCATION CONSULTANT: DM 11/14/20934 RPT#: [id number] DC DATE: STATUS: ADM IN [facility] [address] [place] [address] END OF REPORT
--- NOTE | 2020-11-14 10:04 | MORECARE ---
CASE MANAGEMENT DISCHARGE SUMMARY PATIENT: AIDA AZAR UNIT: [id number] ADM DATE: 11/10/20 AGE: 70 : 50 SEX: M ROOM/BED: D.2103 AUTHOR: LUCILLE,DOC PHYSICIAN: REFERRING PHYSICIAN: RENEE NICE MD DATE OF SERVICE: 11/14/20 Case Management Discharge Planning Summary COMMENTS ENTERED DATE: 11/14/20 9:57 CT COMMENT TYPE: Discharge Planning REVIEWER: Pat Watkins CM spoke with daughter concerning discharge planning/needs. Patient is confused. She states that she is unable to care for her father and would like him to go "to a facility near [place]." I have told her of [facility] and [facility] probably being the closest to her and that [facility] does not have any availability at this time. She chooses [facility]. I informed Harry that I was sending a referral and referral faxed. She states that he has become very weak and that he may need LTC if unable to get strong enough to take care of self. He has a cane and shower chair at home. States they have an upcoming appointment with Dr. Quiroz for his PCP. He will need PA before he can go to a SNF. CM will continue to follow and assist with discharge planning/needs. ENTERED DATE: 11/14/20 9:24 CT COMMENT TYPE: Discharge Planning REVIEWER: Pat Watkins CM attempted to call patient's daughterDary for discharge planning/needs. Dary does not have a voice mailbox that has been set up yet. I will try again later. DCP REVIEW SUMMARY ANTICIPATED D/C DATE: EXPECTED LOS : CASE STATUS: DCP Initiated INITIAL REVIEW: 11/10/2020 INITIAL REVIEWER: Pat Watkins FINAL DISCHARGE DISPOSITION: : FINAL REVIEWER: FINAL REVIEW DATE: DCP Focus Questions & Answers DCP Screen QUESTION: ANSWER High Risk Factors: : Readmission within past 30 days DCP Evaluation QUESTION: ANSWER Patient's current cognitive status: : Confused Patient gives permission to discuss discharge plans with: (name, relationship and number) : Dary Emerson - [phone] Patient's ability to cope with chronic illness : b. Minimal (2 - 3 ED visits in 6 mos., limited financial resources, occasionally misses appts.) Functional screen assessment: : New onset in difficulty in gait, balance, or transfer difficulties Family / Caregiver's ability to cope with chronic illness: : b. Minimal (occasionally not dependable to meet pt's. needs, can meet pt's. basic ADL's) Physical Status: : Mobility impaired Living Arrangements: : Home with others Partial Dependence, assistance required for: : Ambulation / Mobility Results of this evaluation have been discussed with: : Family Patient with capacity for self-care or can be cared for in same environment as prior to hospitalization? : No Living arrangements comments: : Lives with Dary august Baseline cognitive status: : Confused Physical environment modification needed / anticipated for discharge: : No Comments: : Daughter - Dary Physical environment referral comments (if applicable): : [facility] Pharmacy name(s): : [facility] [address] No PCP, has an appointment with Dr. El" Does Patient have transportation to get home and to follow-up medical appointments when discharged from the hospital? : Yes Comments: : Referral to [facility] Would patient like to participate in any Care Coordination programs (if applicable): : Not applicable Equipment in use: : Shower Chair Equipment in use: : Cane - Single Leg Mental health screen: : No mental health history Psychosocial status: : Adult with physical limitations Psychosocial status: : Adult with cognitive limitations Resources / Services in place: : Home health Contact information for resources in use: : [facility] set up on last visit DCP Re-evaluation QUESTION: ANSWER Would patient like to participate in any Care Coordination programs (if applicable): : Not applicable PATIENT: AIDA AZAR ENCOUNTER: [id number] MEDICAL RECORD#: [id number] ADMISSION DATE: 11/10/2020 DISCHARGE DATE: ATTENDING MD: JOHNNY MUNOZ : AGE: 70 MARITAL STATUS: S DC PLAN ID: [id number] FACILITY: [facility] PRINTED ON: 11/14/20 10:04 CT All edits/amendments must be made on the electronic document DICTATION DATE: 11/14/20 1004 TABLEAU DEVELOPER: PHLIOMENA 11/14/20 1004 RPT#: [id number] DC DATE: STATUS: ADM IN [facility] [address] [place] [address] END OF REPORT
[2020-11-14 12:27] VITALS: BP 146/61
[2020-11-14 14:14] LABS: PLATELET ESTIMATE DECREASED
--- NOTE | 2020-11-14 14:48 | NUR ---
GT BELT, PATIENT MIN ASST TO GET TO BEDSIDE AND TO STAND. PATIENT WALKED 100 FEET WITH MIN ASST USING WALKER, BUT PATIENT WAS SHAKY DURING WALK AND SEEMED WEAK. SAT IN CHAIR AFTER WALK.
--- NOTE | 2020-11-14 16:35 | NUR ---
OT NOTE: PT REQUIRED MAX A FOR MONTSE SOCK. PT REQUIRED MIN A FOR FACE AND HAND HYGIENE. PT COMPLETED ADL MOB WITH RW REQUIRED MIN A. [phone] THANK YOU,MAGGI LYNCH
[2020-11-14 17:25] LABS: SARS-CoV-2 ANTIGEN NEGATIVE- SARS-COV-2 (NEGATIVE)
[2020-11-14 20:00] VITALS: BP 162/71
--- NOTE | 2020-11-14 20:15 | NUR ---
RECEIVED BEDSIDE REPORT. PT LAYING IN BED, ORIENTATED TO SELF, GARBLED SPEECH. PIV TO RIGHT HAND PATENT AND INFUSING, NO REDNESS OR SWELLING. ABD APPEARS DISTENDED. PT ABLE TO AMBULATE WITH ASSIST. ALL FALL PRECAUTIONS IN PLACE, ALARMS ON, CL IN REACH. WILL CONTINUE POC.
[2020-11-15] VITALS: BP 156/78
--- NOTE | 2020-11-15 01:15 | NUR ---
PT ESCORTED TO BR, DID NOT MAKE IT TO TOILET. LOOSE STOOL UNDER ALL OVER PLACE. TRIMMER BUFFING WHEEL ASSISTED WITH CLEAN UP. BED LOW, ALARM ON, CL IN REACH.
[2020-11-15 04:00] VITALS: BP 151/77
[2020-11-15 05:44] LABS: BASOPHILS 1.1 % (0-2); EOSINOPHILS 3.2 % (0-7); HEMATOCRIT 27.7 % (42.0-54.0); HEMOGLOBIN 9.6 g/dL (13.5-17.5); LYMPHOCYTES 14.6 % (15-50); MCH 34.5 pg (26.0-34.0); MCHC 34.6 g/dL (31.0-37.0); MCV 99.8 fL (80.0-100.0); MEAN PLATELET VOLUME 8.8 fL (7.4-10.4); NEUTROPHILS 69.1 % (40-80); PLATELET COUNT 85 10x3/uL (130-400); RBC 2.77 10x6/uL (4.20-6.10); RDW 15.4 % (11.5-14.5)
[2020-11-15 06:08] LABS: INR 1.6 (0.85-1.17); PROTIME 17.6 SECONDS (11.6-15.0)
[2020-11-15 06:21] LABS: ALBUMIN 2.6 g/dL (3.4-5.0); ANION GAP 12.9 mmol/L (8-16); BILIRUBIN - TOTAL 1.84 mg/dL (0.2-1.3); CALCIUM 8.3 mg/dL (8.5-10.1); CARBON DIOXIDE 20.9 mmol/L (21.0-32.0); CREATININE - SERUM 1.1 mg/dL (0.6-1.3); MAGNESIUM - SERUM 1.5 mg/dL (1.8-2.4); POTASSIUM - SERUM 3.8 mmol/L (3.5-5.1); PROTEIN - SERUM 7.4 g/dL (6.4-8.2)
[2020-11-15 08:56] VITALS: BP 157/75
--- NOTE | 2020-11-15 10:09 | MORECARE ---
CASE MANAGEMENT DISCHARGE SUMMARY PATIENT: AIDA AZAR UNIT: [id number] ADM DATE: 11/10/20 AGE: 70 : 50 SEX: M ROOM/BED: D.2201 AUTHOR: LUCILLE,DOC PHYSICIAN: REFERRING PHYSICIAN: RENEE NICE MD DATE OF SERVICE: 11/15/20 Case Management Discharge Planning Summary COMMENTS ENTERED DATE: 11/15/20 9:57 CT COMMENT TYPE: Discharge Planning REVIEWER: Anay Coe SPOKE WITH LYNDSEY AT [facility] AND THEY ARE STILL PENDING PRE AUTH FOR REHAB HE WILL LET ME KNOW WHEN THEY GET IT CM TO FOLLOW AND ASSIST ENTERED DATE: 11/14/20 9:57 CT COMMENT TYPE: Discharge Planning REVIEWER: Pat Watkins CM spoke with daughter concerning discharge planning/needs. Patient is confused. She states that she is unable to care for her father and would like him to go "to a facility near [place]." I have told her of [facility] and [facility] probably being the closest to her and that [facility] does not have any availability at this time. She chooses [facility]. I informed Lyndsey that I was sending a referral and referral faxed. She states that he has become very weak and that he may need LTC if unable to get strong enough to take care of self. He has a cane and shower chair at home. States they have an upcoming appointment with Dr. Quiroz for his PCP. He will need PA before he can go to a SNF. CM will continue to follow and assist with discharge planning/needs. ENTERED DATE: 11/14/20 9:24 CT COMMENT TYPE: Discharge Planning REVIEWER: Pat Watkins CM attempted to call patient's daughter, Dary for discharge planning/needs. Dary does not have a voice mailbox that has been set up yet. I will try again later. DCP REVIEW SUMMARY ANTICIPATED D/C DATE: EXPECTED LOS : CASE STATUS: DCP Initiated INITIAL REVIEW: 11/10/2020 INITIAL REVIEWER: Pat Watkins FINAL DISCHARGE DISPOSITION: : FINAL REVIEWER: FINAL REVIEW DATE: DCP Focus Questions & Answers DCP Screen QUESTION: ANSWER High Risk Factors: : Readmission within past 30 days DCP Evaluation QUESTION: ANSWER Patient's ability to cope with chronic illness : b. Minimal (2 - 3 ED visits in 6 mos., limited financial resources, occasionally misses appts.) Patient gives permission to discuss discharge plans with: (name, relationship and number) : Dary Emerson - [phone] Patient's current cognitive status: : Confused Physical Status: : Mobility impaired Family / Caregiver's ability to cope with chronic illness: : b. Minimal (occasionally not dependable to meet pt's. needs, can meet pt's. basic ADL's) Functional screen assessment: : New onset in difficulty in gait, balance, or transfer difficulties Partial Dependence, assistance required for: : Ambulation / Mobility Living Arrangements: : Home with others Baseline cognitive status: : Confused Living arrangements comments: : Lives with Dary august Patient with capacity for self-care or can be cared for in same environment as prior to hospitalization? : No Results of this evaluation have been discussed with: : Family Comments: : Daughter Mayank Foote Physical environment modification needed / anticipated for discharge: : No Physical environment referral comments (if applicable): : [facility] Pharmacy name(s): : [facility] [address] No PCP, has an appointment with Dr. El" Does Patient have transportation to get home and to follow-up medical appointments when discharged from the hospital? : Yes Would patient like to participate in any Care Coordination programs (if applicable): : Not applicable Comments: : Referral to [facility] Equipment in use: : Cane - Single Leg Equipment in use: : Shower Chair Mental health screen: : No mental health history Psychosocial status: : Adult with cognitive limitations Psychosocial status: : Adult with physical limitations Resources / Services in place: : Home health Contact information for resources in use: : [facility] set up on last visit DCP Re-evaluation QUESTION: ANSWER Would patient like to participate in any Care Coordination programs (if applicable): : Not applicable PATIENT: AIDA AZAR ENCOUNTER: [id number] MEDICAL RECORD#: [id number] ADMISSION DATE: 11/10/2020 DISCHARGE DATE: ATTENDING MD: JOHNNY MUNOZ : AGE: 70 MARITAL STATUS: S DC PLAN ID: [id number] FACILITY: [facility] PRINTED ON: 11/15/20 10:08 CT All edits/amendments must be made on the electronic document DICTATION DATE: 11/15/201007 PUBLIC RELATIONS WRITER: PHILOMENA 11/15/20 100 RPT#: [id number] DC DATE: STATUS: ADM IN [facility] [address] [place] [address] END OF REPORT
--- NOTE | 2020-11-15 12:31 | MORECARE ---
CASE MANAGEMENT DISCHARGE SUMMARY PATIENT: AIDA AZAR UNIT: [id number] ADM DATE: 11/10/20 AGE: 70 : 50 SEX: M ROOM/BED: D.2201 AUTHOR: LUCILLE,DOC PHYSICIAN: REFERRING PHYSICIAN: RENEE NICE MD DATE OF SERVICE: 11/15/20 Case Management Discharge Planning Summary COMMENTS ENTERED DATE: 11/15/20 12:29 CT COMMENT TYPE: Discharge Planning REVIEWER: Anay Coe UPDATE GIVEN TO PATIENT'S DAUGHTER ENTERED DATE: 11/15/20 9:57 CT COMMENT TYPE: Discharge Planning REVIEWER: Anay Coe SPOKE WITH LYNDSEY AT [facility] AND THEY ARE STILL PENDING PRE AUTH FOR REHAB HE WILL LET ME KNOW WHEN THEY GET IT CM TO FOLLOW AND ASSIST ENTERED DATE: 11/14/20 9:57 CT COMMENT TYPE: Discharge Planning REVIEWER: Pat Watkins CM spoke with daughter concerning discharge planning/needs. Patient is confused. She states that she is unable to care for her father and would like him to go "to a facility near [place]." I have told her of [facility] and [facility] probably being the closest to her and that [facility] does not have any availability at this time. She chooses [facility]. I informed Lyndsey that I was sending a referral and referral faxed. She states that he has become very weak and that he may need LTC if unable to get strong enough to take care of self. He has a cane and shower chair at home. States they have an upcoming appointment with Dr. Quiroz for his PCP. He will need PA before he can go to a SNF. CM will continue to follow and assist with discharge planning/needs. ENTERED DATE: 11/14/20 9:24 CT COMMENT TYPE: Discharge Planning REVIEWER: Pat Watkins CM attempted to call patient's daughterDary for discharge planning/needs. Dary does not have a voice mailbox that has been set up yet. I will try again later. DCP REVIEW SUMMARY ANTICIPATED D/C DATE: EXPECTED LOS : CASE STATUS: DCP Initiated INITIAL REVIEW: 11/10/2020 INITIAL REVIEWER: Pat Watkins FINAL DISCHARGE DISPOSITION: : FINAL REVIEWER: FINAL REVIEW DATE: DCP Focus Questions & Answers DCP Screen QUESTION: ANSWER High Risk Factors: : Readmission within past 30 days DCP Evaluation QUESTION: ANSWER Patient's ability to cope with chronic illness : b. Minimal (2 - 3 ED visits in 6 mos., limited financial resources, occasionally misses appts.) Patient gives permission to discuss discharge plans with: (name, relationship and number) : Dary [facility] - [phone] Patient's current cognitive status: : Confused Physical Status: : Mobility impaired Family / Caregiver's ability to cope with chronic illness: : b. Minimal (occasionally not dependable to meet pt's. needs, can meet pt's. basic ADL's) Functional screen assessment: : New onset in difficulty in gait, balance, or transfer difficulties Partial Dependence, assistance required for: : Ambulation / Mobility Living Arrangements: : Home with others Baseline cognitive status: : Confused Living arrangements comments: : Lives with Dary august Patient with capacity for self-care or can be cared for in same environment as prior to hospitalization? : No Results of this evaluation have been discussed with: : Family Comments: : Genny Foote Physical environment modification needed / anticipated for discharge: : No Physical environment referral comments (if applicable): : [email or web address] Pharmacy name(s): : [facility] [address] No PCP, has an appointment with Dr. El" Does Patient have transportation to get home and to follow-up medical appointments when discharged from the hospital? : Yes Would patient like to participate in any Care Coordination programs (if applicable): : Not applicable Comments: : Referral to [email or web address] Equipment in use: : Cane - Single Leg Equipment in use: : Shower Chair Mental health screen: : No mental health history Psychosocial status: : Adult with cognitive limitations Psychosocial status: : Adult with physical limitations Resources / Services in place: : Home health Contact information for resources in use: : [facility] set up on last visit DCP Re-evaluation QUESTION: ANSWER Would patient like to participate in any Care Coordination programs (if applicable): : Not applicable PATIENT: AIDA AZAR ENCOUNTER: [id number] MEDICAL RECORD#: [id number] ADMISSION DATE: 11/10/2020 DISCHARGE DATE: ATTENDING MD: JOHNNY MUNOZ : AGE: 70 MARITAL STATUS: S DC PLAN ID: [id number] FACILITY: [facility] PRINTED ON: 11/15/20 12:31 CT All edits/amendments must be made on the electronic document DICTATION DATE: 11/15/20 1231 PICKING BELT OPERATOR: PHILOMENA 11/15/20 1231 RPT#: [id number] DC DATE: STATUS: ADM IN [facility] [address] [place] [address] END OF REPORT
[2020-11-15 12:38] VITALS: BP 149/76
--- NOTE | 2020-11-15 12:42 | NUR ---
Nutrition follow-up: Diet order: Regular mechanical soft PO intake ~60% average at meals Labs reviewed Wt: 175# +BM PO intake fair to good at meals. Will continue to provide food choices and honor food preferences within diet modification restrictions. RDN will follow-up in3-5 days.
--- NOTE | 2020-11-15 14:49 | NUR ---
0700 BEDSIDE REPORT RECEIVED BED ALARM AND LOU BED BOTH WORKING PROPERLY
--- NOTE | 2020-11-15 14:55 | NUR ---
0800 INSTRUCTED ON CORRECT IS USE RETURNED DEMONSTRATION DID WELL PULLING 1500 ML
--- NOTE | 2020-11-15 14:58 | NUR ---
1355 NEW ORDER WRITTEN TELEMETRY PLACED ON SR 75
--- NOTE | 2020-11-15 15:24 | NUR ---
1400 PATIENT TRYING TO CRAWL OUT OF BED ALL BED ALARMS ARE ON AND WORKING PROPERLY LOU BED ALSO ON USING VIDEO MONITOR AT THE NURSING STATION FOR CLOSER OBSERVATIION
[2020-11-15 17:24] VITALS: BP 136/75
--- NOTE | 2020-11-15 19:45 | NUR ---
RECEIVED BEDSIDE REPORT. PT LAYING IN BED ORIENTATED TO SELF. PIV TO RIGHT HAND PATENT AND INFUSING, NO REDNESS OR SWELLING. ABD DISTENDED. TELEMETRY IN PLACE 73 SR. ALL FALL PRECAUTIONS IN PLACE. BED ALARM ON, CL REACH. WILL CONTINUE POC.
[2020-11-15 20:00] VITALS: BP 147/73
[2020-11-16 04:00] VITALS: BP 99/44
[2020-11-16 06:19] LABS: INR 1.61 (0.85-1.17); PROTIME 17.8 SECONDS (11.6-15.0)
[2020-11-16 06:23] LABS: BASOPHILS 0.9 % (0-2); EOSINOPHILS 3.4 % (0-7); HEMATOCRIT 26.9 % (42.0-54.0); HEMOGLOBIN 9.5 g/dL (13.5-17.5); LYMPHOCYTES 14.9 % (15-50); MCH 34.6 pg (26.0-34.0); MCHC 35.2 g/dL (31.0-37.0); MCV 98.3 fL (80.0-100.0); MEAN PLATELET VOLUME 8.7 fL (7.4-10.4); MONOCYTES 9.8 % (2-11); PLATELET COUNT 84 10x3/uL (130-400); RBC 2.74 10x6/uL (4.20-6.10); RDW 15.2 % (11.5-14.5); WBC 6.5 10x3/uL (4.8-10.8)
[2020-11-16 07:00] LABS: ALBUMIN 2.5 g/dL (3.4-5.0); ALKALINE PHOSPHATASE 49 U/L (30-120); ALT (SGPT) 20 U/L (10-68); BILIRUBIN - TOTAL 1.94 mg/dL (0.2-1.3); CALC OSMOLALITY 270 mosm/kg (275-300); CALCIUM 8.3 mg/dL (8.5-10.1); CARBON DIOXIDE 19.8 mmol/L (21.0-32.0); CHLORIDE - SERUM 105 mmol/L (98-107); CREATININE - SERUM 0.9 mg/dL (0.6-1.3); GLUCOSE 102 mg/dL (74-106); MAGNESIUM - SERUM 1.4 mg/dL (1.8-2.4); POTASSIUM - SERUM 3.6 mmol/L (3.5-5.1); PROTEIN - SERUM 7.1 g/dL (6.4-8.2); SODIUM 135 mmol/L (136-145); UREA NITROGEN 14 mg/dL (7-18); eGFR NON AFRICAN AMERICAN 89 mL/min (90-120)
--- NOTE | 2020-11-16 07:48 | NUR ---
PT RESTING QUIETLY IN BED WITH HOB ELEVATED AT THIS TIME. PT SPEECH IS GARBLED, BUT ABLE TO FOLLOW COMMANDS. PT DENIES PAIN. IV TO RIGHT HAND WITH NS @ 75ML/HR INFUSING VIA PUMP. SITE WITHOUT REDNESS OR EDEMA. BED ALARM IN PLACE AND ON. PT VOICES WISHES FOR CUP OF COFFEE. DENIES FURTHER NEEDS AT THIS TIME. CL WITHIN REACH. ENCOURAGED TO CALL WITH NEEDS. CONTINUE POC
[2020-11-16 09:24] VITALS: BP 128/68
--- NOTE | 2020-11-16 11:05 | MORECARE ---
CASE MANAGEMENT DISCHARGE SUMMARY PATIENT: AIDA AZAR UNIT: [id number] ADM DATE: 11/10/20 AGE: 70 : 50 SEX: M ROOM/BED: D.2201 AUTHOR: LUCILLE,DOC PHYSICIAN: REFERRING PHYSICIAN: RENEE NICE MD DATE OF SERVICE: 11/16/20 Case Management Discharge Planning Summary COMMENTS ENTERED DATE: 11/15/20 12:29 CT COMMENT TYPE: Discharge Planning REVIEWER: Anay Coe UPDATE GIVEN TO PATIENT'S DAUGHTER ENTERED DATE: 11/15/20 9:57 CT COMMENT TYPE: Discharge Planning REVIEWER: Anay Coe SPOKE WITH LYNDSEY AT [facility] AND THEY ARE STILL PENDING PRE AUTH FOR REHAB HE WILL LET ME KNOW WHEN THEY GET IT CM TO FOLLOW AND ASSIST ENTERED DATE: 11/14/20 9:57 CT COMMENT TYPE: Discharge Planning REVIEWER: Pat Watkins CM spoke with daughter concerning discharge planning/needs. Patient is confused. She states that she is unable to care for her father and would like him to go "to a facility near [place]." I have told her of [facility] and [facility] probably being the closest to her and that [facility] does not have any availability at this time. She chooses [facility]. I informed Lyndsey that I was sending a referral and referral faxed. She states that he has become very weak and that he may need LTC if unable to get strong enough to take care of self. He has a cane and shower chair at home. States they have an upcoming appointment with Dr. Quiroz for his PCP. He will need PA before he can go to a SNF. CM will continue to follow and assist with discharge planning/needs. ENTERED DATE: 11/14/20 9:24 CT COMMENT TYPE: Discharge Planning REVIEWER: Pat Watkins CM attempted to call patient's daughterDary for discharge planning/needs. Dary does not have a voice mailbox that has been set up yet. I will try again later. DCP REVIEW SUMMARY ANTICIPATED D/C DATE: EXPECTED LOS : CASE STATUS: DCP Initiated INITIAL REVIEW: 11/10/2020 INITIAL REVIEWER: Pat Watkins FINAL DISCHARGE DISPOSITION: : FINAL REVIEWER: FINAL REVIEW DATE: DCP Focus Questions & Answers DCP Screen QUESTION: ANSWER High Risk Factors: : Readmission within past 30 days DCP Evaluation QUESTION: ANSWER Patient's ability to cope with chronic illness : b. Minimal (2 - 3 ED visits in 6 mos., limited financial resources, occasionally misses appts.) Patient gives permission to discuss discharge plans with: (name, relationship and number) : Dary [facility] - [phone] Patient's current cognitive status: : Confused Physical Status: : Mobility impaired Family / Caregiver's ability to cope with chronic illness: : b. Minimal (occasionally not dependable to meet pt's. needs, can meet pt's. basic ADL's) Functional screen assessment: : New onset in difficulty in gait, balance, or transfer difficulties Partial Dependence, assistance required for: : Ambulation / Mobility Living Arrangements: : Home with others Baseline cognitive status: : Confused Living arrangements comments: : Lives with Dary august Patient with capacity for self-care or can be cared for in same environment as prior to hospitalization? : No Results of this evaluation have been discussed with: : Family Comments: : Genny Foote Physical environment modification needed / anticipated for discharge: : No Physical environment referral comments (if applicable): : [facility] Pharmacy name(s): : [facility] [address] No PCP, has an appointment with Dr. El" Does Patient have transportation to get home and to follow-up medical appointments when discharged from the hospital? : Yes Would patient like to participate in any Care Coordination programs (if applicable): : Not applicable Comments: : Referral to [facility] Equipment in use: : Cane - Single Leg Equipment in use: : Shower Chair Mental health screen: : No mental health history Psychosocial status: : Adult with cognitive limitations Psychosocial status: : Adult with physical limitations Resources / Services in place: : Home health Contact information for resources in use: : [facility] set up on last visit DCP Re-evaluation QUESTION: ANSWER Would patient like to participate in any Care Coordination programs (if applicable): : Not applicable PATIENT: AIDA AZAR ENCOUNTER: [id number] MEDICAL RECORD#: [id number] ADMISSION DATE: 11/10/2020 DISCHARGE DATE: ATTENDING MD: JOHNNY MUNOZ : AGE: 70 MARITAL STATUS: S DC PLAN ID: [id number] FACILITY: [facility] PRINTED ON: 11/16/20 11:05 CT All edits/amendments must be made on the electronic document DICTATION DATE: 11/16/201104 PATIENT ACCOUNT SPECIALIST: PHILOMENA 11/16/20 110 RPT#: [id number] DC DATE: STATUS: ADM IN [facility] [address] [place] [address] END OF REPORT
[2020-11-16 11:52] VITALS: BP 122/72
[2020-11-16 12:54] LABS: PLATELET ESTIMATE DECREASED
[2020-11-16 16:04] VITALS: BP 149/72
[2020-11-16 16:18] VITALS: BP 149/72
--- NOTE | 2020-11-16 19:45 | NUR ---
RECEIVED BEDSIDE REPORT. PT LAYING IN BED O TO SELF. PIV TO LEFT FOREARM PATENT AND INFUSING, NO REDNESS OR SWELLING. SCAB/SORES NOTED TO ALL EXTREMITIES. TELEMETRY IN PLACE, 73 SR. PT ABLE TO AMBULATE WITH ASSIST. ALL FALL PRECAUTIONS IN PLACE. BED LOW, CL IN REACH.
[2020-11-16 20:00] VITALS: BP 135/83
[2020-11-17] VITALS: BP 135/83; BP 139/73
[2020-11-17 04:00] VITALS: BP 161/75
[2020-11-17 06:35] LABS: BASOPHILS 0.9 % (0-2); EOSINOPHILS 2.9 % (0-7); HEMATOCRIT 26.4 % (42.0-54.0); HEMOGLOBIN 9.3 g/dL (13.5-17.5); INR 1.58 (0.85-1.17); LYMPHOCYTES 17.6 % (15-50); MCH 34.9 pg (26.0-34.0); MCHC 35.1 g/dL (31.0-37.0); MCV 99.5 fL (80.0-100.0); MONOCYTES 10.1 % (2-11); NEUTROPHILS 68.5 % (40-80); PLATELET COUNT 78 10x3/uL (130-400); PROTIME 17.5 SECONDS (11.6-15.0); RBC 2.66 10x6/uL (4.20-6.10); RDW 15.4 % (11.5-14.5); WBC 6.7 10x3/uL (4.8-10.8)
[2020-11-17 07:16] LABS: ALBUMIN 2.4 g/dL (3.4-5.0); ALKALINE PHOSPHATASE 48 U/L (30-120); ALT (SGPT) 19 U/L (10-68); BILIRUBIN - TOTAL 1.95 mg/dL (0.2-1.3); CALC OSMOLALITY 269 mosm/kg (275-300); CALCIUM 7.9 mg/dL (8.5-10.1); CARBON DIOXIDE 18.1 mmol/L (21.0-32.0); CHLORIDE - SERUM 106 mmol/L (98-107); GLUCOSE 96 mg/dL (74-106); POTASSIUM - SERUM 3.6 mmol/L (3.5-5.1); PROTEIN - SERUM 6.9 g/dL (6.4-8.2); SODIUM 135 mmol/L (136-145); UREA NITROGEN 12 mg/dL (7-18); eGFR NON AFRICAN AMERICAN 78 mL/min (90-120)
[2020-11-17 07:18] LABS: LIPASE 1789 U/L (73-393)
--- NOTE | 2020-11-17 08:14 | NUR ---
0700 BEDSSIDE REPORT RECEIVED AWAKE ALERT PULLED UP IN BED WITH ASSIST X 2 LOU BED MAT BED LOCK AND VISAL MONOTOR FUNCTIONING PROPERLY TO ENSURE SAFELY FROM FALLS
[2020-11-17 08:43] VITALS: BP 157/76
--- NOTE | 2020-11-17 09:41 | MORECARE ---
CASE MANAGEMENT DISCHARGE SUMMARY PATIENT: AIDA AZAR UNIT: [id number] ADM DATE: 11/10/20 AGE: 70 : 50 SEX: M ROOM/BED: D.2201 AUTHOR: LUCILLE,DOC PHYSICIAN: REFERRING PHYSICIAN: RENEE NICE MD DATE OF SERVICE: 11/17/20 Case Management Discharge Planning Summary COMMENTS ENTERED DATE: 11/17/20 9:38 CT COMMENT TYPE: Discharge Planning REVIEWER: Anay PONCEMY BROWN WITH [facility] STATES THAT THE DAUGHTER IS SIGNING PAPERWORK AT 1400 AND THEN HE WILL CALL ME WITH A BANQUET MANAGER TIME CM TO FOLLOW AND ASSIST NEEDED ENTERED DATE: 11/15/20 12:29 CT COMMENT TYPE: Discharge Planning REVIEWER: Anay Coe UPDATE GIVEN TO PATIENT'S DAUGHTER ENTERED DATE: 11/15/20 9:57 CT COMMENT TYPE: Discharge Planning REVIEWER: Anay Coe SPOKE WITH LYNDSEY AT [facility] AND THEY ARE STILL PENDING PRE AUTH FOR REHAB HE WILL LET ME KNOW WHEN THEY GET IT CM TO FOLLOW AND ASSIST ENTERED DATE: 11/14/20 9:57 CT COMMENT TYPE: Discharge Planning REVIEWER: Pat Watkins CM spoke with daughter concerning discharge planning/needs. Patient is confused. She states that she is unable to care for her father and would like him to go "to a facility near [place]." I have told her of [facility] and [facility] probably being the closest to her and that [facility] does not have any availability at this time. She chooses [facility]. I informed Lyndsey that I was sending a referral and referral faxed. She states that he has become very weak and that he may need LTC if unable to get strong enough to take care of self. He has a cane and shower chair at home. States they have an upcoming appointment with Dr. Quiroz for his PCP. He will need PA before he can go to a SNF. CM will continue to follow and assist with discharge planning/needs. ENTERED DATE: 11/14/20 9:24 CT COMMENT TYPE: Discharge Planning REVIEWER: Pat Watkins CM attempted to call patient's daughterDary for discharge planning/needs. Dary does not have a voice mailbox that has been set up yet. I will try again later. DCP REVIEW SUMMARY ANTICIPATED D/C DATE: EXPECTED LOS : CASE STATUS: DCP Initiated INITIAL REVIEW: 11/10/2020 INITIAL REVIEWER: Pat Watkins FINAL DISCHARGE DISPOSITION: : FINAL REVIEWER: FINAL REVIEW DATE: DCP Focus Questions & Answers DCP Screen QUESTION: ANSWER High Risk Factors: : Readmission within past 30 days DCP Evaluation QUESTION: ANSWER Patient's current cognitive status: : Confused Patient gives permission to discuss discharge plans with: (name, relationship and number) : Dary Emerson - [phone] Patient's ability to cope with chronic illness : b. Minimal (2 - 3 ED visits in 6 mos., limited financial resources, occasionally misses appts.) Functional screen assessment: : New onset in difficulty in gait, balance, or transfer difficulties Family / Caregiver's ability to cope with chronic illness: : b. Minimal (occasionally not dependable to meet pt's. needs, can meet pt's. basic ADL's) Physical Status: : Mobility impaired Living Arrangements: : Home with others Partial Dependence, assistance required for: : Ambulation / Mobility Results of this evaluation have been discussed with: : Family Patient with capacity for self-care or can be cared for in same environment as prior to hospitalization? : No Living arrangements comments: : Lives with Dary august Baseline cognitive status: : Confused Physical environment modification needed / anticipated for discharge: : No Comments: : Daughter - Dary Physical environment referral comments (if applicable): : [facility] Pharmacy name(s): : [facility] [address] No PCP, has an appointment with Dr. El" Does Patient have transportation to get home and to follow-up medical appointments when discharged from the hospital? : Yes Comments: : Referral to [facility] Would patient like to participate in any Care Coordination programs (if applicable): : Not applicable Equipment in use: : Shower Chair Equipment in use: : Cane - Single Leg Mental health screen: : No mental health history Psychosocial status: : Adult with physical limitations Psychosocial status: : Adult with cognitive limitations Resources / Services in place: : Home health Contact information for resources in use: : [address] [facility] set up on last visit DCP Re-evaluation QUESTION: ANSWER Would patient like to participate in any Care Coordination programs (if applicable): : Not applicable PATIENT: AIDA AZAR ENCOUNTER: [id number] MEDICAL RECORD#: [id number] ADMISSION DATE: 11/10/2020 DISCHARGE DATE: ATTENDING MD: JOHNNY MUNOZ : AGE: 70 MARITAL STATUS: S DC PLAN ID: [id number] FACILITY: [facility] PRINTED ON: 11/17/20 9:41 CT All edits/amendments must be made on the electronic document DICTATION DATE: 11/17/20940 PREPARED FOODS SERVICE TEAM MEMBER: PHILOMENA 11/17/20940 RPT#: [id number] DC DATE: STATUS: ADM IN [facility] [address] [place] [address] END OF REPORT
[2020-11-17] MEDS ORDERED: NICODERM CQ1 EAC3 TRANSDERM (11:01)
[2020-11-17] MEDS ORDERED: XOPENEX 1.1.25 MG/3 UPD (11:01)
[2020-11-17] MEDS ORDERED: ACETAMINOPHEN325 MG PO (11:01)
[2020-11-17] MEDS ORDERED: PROTONIX40 MG PO (11:02)
[2020-11-17] MEDS ORDERED: CHRONULAC30 ML PO (11:02)
[2020-11-17] MEDS ORDERED: MUCINEX600 MG PO (11:02)
[2020-11-17] MEDS ORDERED: TESSALON PERLE100 MG PO (11:02)
--- NOTE | 2020-11-17 15:35 | MORECARE ---
CASE MANAGEMENT DISCHARGE SUMMARY PATIENT: AIDA AZAR UNIT: [id number] ADM DATE: 11/10/20 AGE: 70 : 50 SEX: M ROOM/BED: D.2201 AUTHOR: LUCILLE,DOC PHYSICIAN: REFERRING PHYSICIAN: RENEE NICE MD DATE OF SERVICE: 11/17/20 Case Management Discharge Planning Summary COMMENTS ENTERED DATE: 11/17/20 15:21 CT COMMENT TYPE: Discharge Planning REVIEWER: Anay Coe PATIENT WILL BE DISCHARGING TO [facility] TODAY, THEY WILL BE PICKING HIM UP HIS DAUGHTER IS AWARE OF DISCHARGE. I WILL FAX CLINICAL OVER TO THEM HE WILL BE GOING TO A SKILLED BED CM TO FOLLOW NEEDED WILL SERVE IMM TO PATIENT ENTERED DATE: 11/17/20 9:38 CT COMMENT TYPE: Discharge Planning REVIEWER: Anay FLANNERY WITH [facility] STATES THAT THE DAUGHTER IS SIGNING PAPERWORK AT 1400 AND THEN HE WILL CALL ME WITH A CONCRETE FORM SETTER TIME CM TO FOLLOW AND ASSIST NEEDED ENTERED DATE: 11/15/20 12:29 CT COMMENT TYPE: Discharge Planning REVIEWER: Anay Coe UPDATE GIVEN TO PATIENT'S DAUGHTER ENTERED DATE: 11/15/20 9:57 CT COMMENT TYPE: Discharge Planning REVIEWER: Anay Coe SPOKE WITH LYNDSEY AT [facility] AND THEY ARE STILL PENDING PRE AUTH FOR REHAB HE WILL LET ME KNOW WHEN THEY GET IT CM TO FOLLOW AND ASSIST ENTERED DATE: 11/14/20 9:57 CT COMMENT TYPE: Discharge Planning REVIEWER: Pat Watkins CM spoke with daughter concerning discharge planning/needs. Patient is confused. She states that she is unable to care for her father and would like him to go "to a facility near [place]." I have told her of [facility] and [facility] probably being the closest to her and that [facility] not [facility] any availability at this time. She chooses [facility]. I informed Lyndsey that I was sending a referral and referral faxed. She states that he has become very weak and that he may need LTC if unable to get strong enough to take care of self. He has a cane and shower chair at home. States they have an upcoming appointment with Dr. Quiroz for his PCP. He will need PA before he can go to a SNF. CM will continue to follow and assist with discharge planning/needs. ENTERED DATE: 11/14/20 9:24 CT COMMENT TYPE: Discharge Planning REVIEWER: Pat Watkins CM attempted to call patient's daughter, Dary for discharge planning/needs. Dary does not have a voice mailbox that has been set up yet. I will try again later. DCP REVIEW SUMMARY ANTICIPATED D/C DATE: EXPECTED LOS : CASE STATUS: DCP Initiated INITIAL REVIEW: 11/10/2020 INITIAL REVIEWER: Pat Watkins FINAL DISCHARGE DISPOSITION: : FINAL REVIEWER: FINAL REVIEW DATE: DCP Focus Questions & Answers DCP Screen QUESTION: ANSWER High Risk Factors: : Readmission within past 30 days DCP Evaluation QUESTION: ANSWER Patient's current cognitive status: : Confused Patient gives permission to discuss discharge plans with: (name, relationship and number) : Dary Emerson - [phone] Patient's ability to cope with chronic illness : b. Minimal (2 - 3 ED visits in 6 mos., limited financial resources, occasionally misses appts.) Functional screen assessment: : New onset in difficulty in gait, balance, or transfer difficulties Family / Caregiver's ability to cope with chronic illness: : b. Minimal (occasionally not dependable to meet pt's. needs, can meet pt's. basic ADL's) Physical Status: : Mobility impaired Living Arrangements: : Home with others Partial Dependence, assistance required for: : Ambulation / Mobility Results of this evaluation have been discussed with: : Family Patient with capacity for self-care or can be cared for in same environment as prior to hospitalization? : No Living arrangements comments: : Lives with Dary august Baseline cognitive status: : Confused Physical environment modification needed / anticipated for discharge: : No Comments: : Daughter - Dary Physical environment referral comments (if applicable): : [facility] Pharmacy name(s): : [facility] [address] No PCP, has an appointment with Dr. El" Does Patient have transportation to get home and to follow-up medical appointments when discharged from the hospital? : Yes Comments: : Referral to [facility] Would patient like to participate in any Care Coordination programs (if applicable): : Not applicable Equipment in use: : Shower Chair Equipment in use: : Cane - Single Leg Mental health screen: : No mental health history Psychosocial status: : Adult with physical limitations Psychosocial status: : Adult with cognitive limitations Resources / Services in place: : Home health Contact information for resources in use: : [facility] set up on last visit DCP Re-evaluation QUESTION: ANSWER Would patient like to participate in any Care Coordination programs (if applicable): : Not applicable PATIENT: AIDA AZAR ENCOUNTER: [id number] MEDICAL RECORD#: [id number] ADMISSION DATE: 11/10/2020 DISCHARGE DATE: ATTENDING MD: JOHNNY MUNOZ : AGE: 70 MARITAL STATUS: S DC PLAN ID: [id number] FACILITY: [facility] PRINTED ON: 11/17/20 15:35 CT All edits/amendments must be made on the electronic document DICTATION DATE: 11/17/20 153 MAITRE D': PHILOMENA 11/17/201534 RPT#: [id number] DC DATE: STATUS: ADM IN [facility] [address] [place] [address] END OF REPORT
--- NOTE | 2020-11-17 16:05 | MORECARE ---
CASE MANAGEMENT DISCHARGE SUMMARY PATIENT: AIDA AZAR UNIT: [id number] ADM DATE: 11/10/20 AGE: 70 : 50 SEX: M ROOM/BED: D.2201 AUTHOR: LUCILLE,DOC PHYSICIAN: REFERRING PHYSICIAN: RENEE NICE MD DATE OF SERVICE: 11/17/20 Case Management Discharge Planning Summary COMMENTS ENTERED DATE: 11/17/20 15:48 CT COMMENT TYPE: Discharge Planning REVIEWER: Anay Coe I called Dary his daughter to let her know, we will send the patient to [facility] via EMS ( [facility] will pay for transport, because their van is broke) ENTERED DATE: 11/17/20 15:21 CT COMMENT TYPE: Discharge Planning REVIEWER: Anay Coe PATIENT WILL BE DISCHARGING TO [facility] TODAY, THEY WILL BE PICKING HIM UP HIS DAUGHTER IS AWARE OF DISCHARGE. I WILL FAX CLINICAL OVER TO THEM HE WILL BE GOING TO A SKILLED BED CM TO FOLLOW NEEDED WILL SERVE IMM TO PATIENT ENTERED DATE: 11/17/20 9:38 CT COMMENT TYPE: Discharge Planning REVIEWER: Anay FLANNERY WITH [facility] STATES THAT THE DAUGHTER IS SIGNING PAPERWORK AT 1400 AND THEN HE WILL CALL ME WITH A CHILDREN'S PROGRAM COORDINATOR TIME CM TO FOLLOW AND ASSIST NEEDED ENTERED DATE: 11/15/20 12:29 CT COMMENT TYPE: Discharge Planning REVIEWER: Anay Coe UPDATE GIVEN TO PATIENT'S DAUGHTER ENTERED DATE: 11/15/20 9:57 CT COMMENT TYPE: Discharge Planning REVIEWER: Anay Ceo SPOKE WITH LYNDSEY AT [facility] AND THEY ARE STILL PENDING PRE AUTH FOR REHAB HE WILL LET ME KNOW WHEN THEY GET IT CM TO FOLLOW AND ASSIST ENTERED DATE: 11/14/20 9:57 CT COMMENT TYPE: Discharge Planning REVIEWER: Pat Watkins CM spoke with daughter concerning discharge planning/needs. Patient is confused. She states that she is unable to care for her father and would like him to go "to a facility near [place]." I have told her of [facility] and [facility] probably being the closest to her and that [facility] does not have any availability at this time. She chooses [facility]. I informed Lyndsey that I was sending a referral and referral faxed. She states that he has become very weak and that he may need LTC if unable to get strong enough to take care of self. He has a cane and shower chair at home. States they have an upcoming appointment with Dr. Quiroz for his PCP. He will need PA before he can go to a SNF. CM will continue to follow and assist with discharge planning/needs. ENTERED DATE: 11/14/20 9:24 CT COMMENT TYPE: Discharge Planning REVIEWER: Pat Watkins CM attempted to call patient's daughter, Dary for discharge planning/needs. Dary does not have a voice mailbox that has been set up yet. I will try again later. DCP REVIEW SUMMARY ANTICIPATED D/C DATE: EXPECTED LOS : CASE STATUS: DCP Initiated INITIAL REVIEW: 11/10/2020 INITIAL REVIEWER: Pat Watkins FINAL DISCHARGE DISPOSITION: : FINAL REVIEWER: FINAL REVIEW DATE: DCP Focus Questions & Answers DCP Screen QUESTION: ANSWER High Risk Factors: : Readmission within past 30 days DCP Evaluation QUESTION: ANSWER Patient's current cognitive status: : Confused Patient gives permission to discuss discharge plans with: (name, relationship and number) : Dary Emerson - [phone] Patient's ability to cope with chronic illness : b. Minimal (2 - 3 ED visits in 6 mos., limited financial resources, occasionally misses appts.) Functional screen assessment: : New onset in difficulty in gait, balance, or transfer difficulties Family / Caregiver's ability to cope with chronic illness: : b. Minimal (occasionally not dependable to meet pt's. needs, can meet pt's. basic ADL's) Physical Status: : Mobility impaired Living Arrangements: : Home with others Partial Dependence, assistance required for: : Ambulation / Mobility Results of this evaluation have been discussed with: : Family Patient with capacity for self-care or can be cared for in same environment as prior to hospitalization? : No Living arrangements comments: : Lives with Dary august Baseline cognitive status: : Confused Physical environment modification needed / anticipated for discharge: : No Comments: : Daughter - Dary Physical environment referral comments (if applicable): : [facility] Pharmacy name(s): : [facility] [address] No PCP, has an appointment with Dr. El" Does Patient have transportation to get home and to follow-up medical appointments when discharged from the hospital? : Yes Comments: : Referral to [facility] Would patient like to participate in any Care Coordination programs (if applicable): : Not applicable Equipment in use: : Shower Chair Equipment in use: : Cane - Single Leg Mental health screen: : No mental health history Psychosocial status: : Adult with physical limitations Psychosocial status: : Adult with cognitive limitations Resources / Services in place: : Home health Contact information for resources in use: : [facility] set up on last visit DCP Re-evaluation QUESTION: ANSWER Would patient like to participate in any Care Coordination programs (if applicable): : Not applicable PATIENT: AIDA AZAR ENCOUNTER: [id number] MEDICAL RECORD#: [id number] ADMISSION DATE: 11/10/2020 DISCHARGE DATE: ATTENDING MD: JOHNNY MUNOZ : AGE: 70 MARITAL STATUS: S DC PLAN ID: [id number] FACILITY: [facility] PRINTED ON: 11/17/20 16:04 CT All edits/amendments must be made on the electronic document DICTATION DATE: 11/17/201603 PULLMAN CONDUCTOR: PHILOMENA 11/17/201603 RPT#: [id number] DC DATE: STATUS: ADM IN [facility] [address] [place] [address] END OF REPORT
--- NOTE | 2020-11-17 18:17 | NUR ---
1300 REMAINS UP IN CHAIR LOU PAD IN CHAIR
--- NOTE | 2020-11-17 18:18 | NUR ---
1500 [facility] BROKE DOWN YADI ARRANGED FOR AMBULANCE TO PICK HIM UP
--- NOTE | 2020-11-17 18:19 | NUR ---
1600 REPORT CALLED TO [facility]
--- NOTE | 2020-11-17 22:06 | MORECARE ---
CASE MANAGEMENT DISCHARGE SUMMARY PATIENT: AIDA AZAR UNIT: [id number] ADM DATE: 11/10/20 AGE: 70 : 50 SEX: M ROOM/BED: D.2201 AUTHOR: LUCILLE,DOC PHYSICIAN: REFERRING PHYSICIAN: RENEE NICE MD DATE OF SERVICE: 11/17/20 Case Management Discharge Planning Summary COMMENTS ENTERED DATE: 11/17/20 15:48 CT COMMENT TYPE: Discharge Planning REVIEWER: Anay Coe I called Dary his daughter to let her know, we will send the patient to [facility] via EMS ( [facility] will pay for transport, because their van is broke) ENTERED DATE: 11/17/20 15:21 CT COMMENT TYPE: Discharge Planning REVIEWER: Anay Coe PATIENT WILL BE DISCHARGING TO [facility] TODAY, THEY WILL BE PICKING HIM UP HIS DAUGHTER IS AWARE OF DISCHARGE. I WILL FAX CLINICAL OVER TO THEM HE WILL BE GOING TO A SKILLED BED CM TO FOLLOW NEEDED WILL SERVE IMM TO PATIENT ENTERED DATE: 11/17/20 9:38 CT COMMENT TYPE: Discharge Planning REVIEWER: Anay FLANNERY WITH [facility] STATES THAT THE DAUGHTER IS SIGNING PAPERWORK AT 1400 AND THEN HE WILL CALL ME WITH A SHIPFITTER HELPER TIME CM TO FOLLOW AND ASSIST NEEDED ENTERED DATE: 11/15/20 12:29 CT COMMENT TYPE: Discharge Planning REVIEWER: Anay Coe UPDATE GIVEN TO PATIENT'S DAUGHTER ENTERED DATE: 11/15/20 9:57 CT COMMENT TYPE: Discharge Planning REVIEWER: Anay Coe SPOKE WITH LYNDSEY AT [facility] AND THEY ARE STILL PENDING PRE AUTH FOR REHAB HE WILL LET ME KNOW WHEN THEY GET IT CM TO FOLLOW AND ASSIST ENTERED DATE: 11/14/20 9:57 CT COMMENT TYPE: Discharge Planning REVIEWER: Pat Watkins CM spoke with daughter concerning discharge planning/needs. Patient is confused. She states that she is unable to care for her father and would like him to go "to a facility near [place]." I have told her of [facility] and [facility] probably being the closest to her and that [facility] does not have any availability at this time. She chooses [facility]. I informed Lyndsey that I was sending a referral and referral faxed. She states that he has become very weak and that he may need LTC if unable to get strong enough to take care of self. He has a cane and shower chair at home. States they have an upcoming appointment with Dr. Quiroz for his PCP. He will need PA before he can go to a SNF. CM will continue to follow and assist with discharge planning/needs. ENTERED DATE: 11/14/20 9:24 CT COMMENT TYPE: Discharge Planning REVIEWER: Pat Watkins CM attempted to call patient's daughter, Dary for discharge planning/needs. Dary does not have a voice mailbox that has been set up yet. I will try again later. DCP REVIEW SUMMARY ANTICIPATED D/C DATE: EXPECTED LOS : CASE STATUS: DCP Initiated INITIAL REVIEW: 11/10/2020 INITIAL REVIEWER: Pat Watkins FINAL DISCHARGE DISPOSITION: : FINAL REVIEWER: FINAL REVIEW DATE: DCP Focus Questions & Answers DCP Screen QUESTION: ANSWER High Risk Factors: : Readmission within past 30 days DCP Evaluation QUESTION: ANSWER Patient's current cognitive status: : Confused Patient gives permission to discuss discharge plans with: (name, relationship and number) : Dary Emerson - [phone] Patient's ability to cope with chronic illness : b. Minimal (2 - 3 ED visits in 6 mos., limited financial resources, occasionally misses appts.) Functional screen assessment: : New onset in difficulty in gait, balance, or transfer difficulties Family / Caregiver's ability to cope with chronic illness: : b. Minimal (occasionally not dependable to meet pt's. needs, can meet pt's. basic ADL's) Physical Status: : Mobility impaired Living Arrangements: : Home with others Partial Dependence, assistance required for: : Ambulation / Mobility Results of this evaluation have been discussed with: : Family Patient with capacity for self-care or can be cared for in same environment as prior to hospitalization? : No Living arrangements comments: : Lives with Dary august Baseline cognitive status: : Confused Physical environment modification needed / anticipated for discharge: : No Comments: : Daughter - Dary Physical environment referral comments (if applicable): : [facility] Pharmacy name(s): : [facility] [address] No PCP, has an appointment with Dr. El" Does Patient have transportation to get home and to follow-up medical appointments when discharged from the hospital? : Yes Comments: : Referral to [facility] Would patient like to participate in any Care Coordination programs (if applicable): : Not applicable Equipment in use: : Shower Chair Equipment in use: : Cane - Single Leg Mental health screen: : No mental health history Psychosocial status: : Adult with physical limitations Psychosocial status: : Adult with cognitive limitations Resources / Services in place: : Home health Contact information for resources in use: : [facility] set up on last visit DCP Re-evaluation QUESTION: ANSWER Would patient like to participate in any Care Coordination programs (if applicable): : Not applicable PATIENT: AIDA AZAR ENCOUNTER: [id number] MEDICAL RECORD#: [id number] ADMISSION DATE: 11/10/2020 DISCHARGE DATE: 11/17/2020 ATTENDING MD: JOHNNY MUNOZ : AGE: 70 MARITAL STATUS: S DC PLAN ID: [id number] FACILITY: [facility] PRINTED ON: 11/17/20 22:06 CT All edits/amendments must be made on the electronic document DICTATION DATE: 11/17/202205 EYE PHYSICIAN: PHILOMENA 11/17/202205 RPT#: [id number] DC DATE:11/17/20 STATUS: DIS IN [facility] [address] [place] [address] END OF REPORT
== END 2020-11-17 21:59 | DRG 92 ==
LOC: D.ER 19:26 → D.MS 22:24 → D.M2 22:24 → D.MS 11-14 19:07
PROVIDERS: Emergency Medicine; ADMIT Emergency Medicine; ATTEND Emergency Medicine
DX: G92 Toxic encephalopathy (principal); N17.9 Acute kidney failure, unspecified; E87.1 Hypo-osmolality and hyponatremia; D68.59 Other primary thrombophilia; K76.6 Portal hypertension; K86.1 Other chronic pancreatitis; T50.995A Adverse effect of other drugs, medicaments and biological substances, initial encounter; D50.9 Iron deficiency anemia, unspecified; D69.6 Thrombocytopenia, unspecified; Z91.81 History of falling; I86.4 Gastric varices; G31.9 Degenerative disease of nervous system, unspecified; Z86.73 Personal history of transient ischemic attack (TIA), and cerebral infarction without residual deficits; I25.10 Atherosclerotic heart disease of native coronary artery without angina pectoris; I10 Essential (primary) hypertension; Z72.0 Tobacco use; K70.31 Alcoholic cirrhosis of liver with ascites; B19.20 Unspecified viral hepatitis C without hepatic coma